=== PATIENT | male | born 1975 | race Two or more races ===

== ENCOUNTER 2025-10-14 21:30 | Inpatient (IN) | payer MEDICAID ==
[~2025-10-14] VITALS: Ht 172.7 cm; Wt 84.4 kg
[2025-10-14 21:30] VITALS: PULSE 183; RESP 37; O2SAT 80
[2025-10-14] MEDS: ROCURONIUM 10MG/ML 10ML VIAL IV ONE ×2 (21:36→22:05)
[2025-10-14] MEDS: ETOMIDATE (2MG/ML) 20ML VIAL IV ONE ×2 (21:36→22:03)
--- NOTE | 2025-10-14 21:51 | ECG ---
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
[2025-10-14 22:06] LABS: Hematocrit 45.8 % (41.0-53.0); Hemoglobin 15.3 g/dL (13.5-17.5); Mean Corpuscular Hemoglobin 30.3 pg (28.0-32.0); Mean Corpuscular Volume 91.0 fL (80.0-100.0); Nucleated Red Blood Cells % 0.1 %
[2025-10-14 22:20] LABS: INR 1.03 (0.9-1.15); Prothrombin Time 10.9 sec (9.3-11.8)
[2025-10-14] MEDS: AMIODARONE BOLUS KIT 100 ML IV ONE (22:20)
--- NOTE | 2025-10-14 22:20 | ED.PDOC ---
HPI (NEURO) HPI Comments 50-year-old male brought in by EMS. EMS called out because patient was having seizure. Upon arrival, patient was still having seizure, he was given Versed in route. Seizure did started to slow down. The patient was having snoring/apneic breathing so they put nasal trumpet in and were bagging to improve O2 saturation. Upon arrival patient is rectal temperature was 106, pulse rate in the 170s, no other history given. It was stated that patient does have a history of seizures, there was concerns of possible drug use so EMS did give to of Narcan IV with no effect [facility], other roommates have no prior knowledge of his history other than seizures. Chief Complaint: Seizure Time Seen by MD: 21:38 Reviewed Notes: Nurses Notes Information Source: Emergency Med Personnel Mode of Arrival: EMS Severity: Severe Past Medical History PAST MEDICAL HISTORY: Seizures Surgical History: Denies all surgeries Unable to Obtain due to: Intubated Physical Exam General Appearance: Severe Distress HEENT: NOT DONE Neck: Normal Inspection Respiratory: Respiratory Distress, Other (Patient is snoring, nasal trumpet in place, O2 saturation in the 70s on room air, patient is being bagged) Cardiovascular: Tachycardia Breast Exam: None Gastrointestinal: Soft Genitalia: Deferred Pelvic: Deferred Rectal: Normal rectal tone Extremities: NOT DONE Neurologic: NOT DONE Cerebellar Function: Unable to Test Reflexes: NOT DONE Skin: Diaphoresis Lymphatic: NOT DONE Was a procedure done? Was a procedure done?: Yes Sedation Sedation?: No Intubation Indication: Respiratory Insufficiency, Altered Mental Status, Airway Protection Prep: Preoxygenation Pretreated with: Sedation Medicated with: Vecuronium Intubation Approach: Orotracheal Intubation size: cm (8) Informed consent obtained: No Risks/benefits/alt described: No Notes Successful intubation with two placed 22 cm at the teeth and good color change pending chest x-ray for placement evaluation Differential Diagnosis (SZ) Seizure: Hyperventilation, Closed Head Injury, CVA/TIA, Drug Ingestion, Meningitis, Syncope CVA: Respiratory Failure General Weakness: Dehydration, Dysrhythmia X-Ray, Labs, Meds, VS Vital Signs Date Time Temp Pulse Resp B/P (MAP) Pulse Ox O2 Delivery O2 Flow Rate FiO2 10/14/25 22:52 106.2 159 16 113/39 98 90 106.2 10/14/25 22:45 100.8 134 16 155/67 (96) 100 100.8 10/14/25 22:30 100.6 144 16 152/61 (91) 100 100.6 10/14/25 22:26 148/64 10/14/25 22:25 159 16 113/39 (63) 98 90 10/14/25 22:15 101.8 151 16 148/64 (92) 100 101.8 10/14/25 22:05 83/40 10/14/25 22:00 104.1 158 16 139/89 (106) 100 104.1 10/14/25 21:45 104.1 165 16 108/44 (65) 100 104.1 10/14/25 21:38 179 10/14/25 21:30 183 37 80 Mechanical Ventilator+ 15 100 100 10/14/25 21:30 106.2 176 12 80/48 92 106.2 10/14/25 21:30 106.0 186 37 83/40 (54) 80 106.0 Lab Test 10/14/25 23:44 10/14/25 22:35 10/14/25 22:28 10/14/25 21:50 Range/Units Lactic Acid Level 1.4 0.4-2.0 mmol/L Blood Gas Specimen Type Arterial Blood Gas Sample Site Left radial Blood Gas Patient Temperature 37.0 Arterial Blood Date Drawn Arterial Blood pH 7.324 L 7.350-7.450 Arterial Blood Partial Pressure CO2 38.1 35.0-48.0 mmHg Arterial Blood Partial Pressure O2 415.6 *H 83.0-108.0 mmHg Arterial Blood HCO3 19.4 L 21.0-28.0 mmol/L Arterial Blood Oxygen Saturation 99.9 H 94.0-98.0 % Arterial Blood Base Excess -6.1 L -2.0-3.0 mmol/L Arterial Blood Oxyhemoglobin 98.9 H 94.0-98.0 % Arterial Blood Carboxyhemoglobin 0.4 L 0.5-1.5 % Arterial Blood Methemoglobin 0.6 0.0-1.5 % Jae Test Yes Blood Gas Total Hemoglobin 14.60 13.5-17.5 g/dL Blood Gas Set Respiration Rate 16.0 Blood Gas Modality Vent - ac FiO2 % 90.0 Blood Gas Tidal Volume 500.0 Blood Gas PEEP or CPAP 5.0 Blood Gas Critical Value Read Back Yes Blood Gas Notified Whom quoc Haynes Blood Gas Notified Time [id number] Blood Gas Notified By Director Of Maternity Services elvia tran Troponin I High Sensitivity 56 *H </=54 ng/L Urine Color Yellow Yellow Urine Clarity Clear Clear Urine pH 6.5 5.0-9.0 Urine Specific [place] 1.028 1.001-1.035 Urine Protein 1+ H Negative Urine Ketones 3+ H Negative Urine Blood Negative Negative /uL Urine Nitrite Negative Negative Urine Bilirubin Negative Negative Urine Urobilinogen 4 H Negative mg/dL Urine Leukocyte Esterase 1+ Negative /uL Urine RBC 5 0 - 3 /hpf Urine Microscopic WBC 29 H 0-3 /HPF Urine Squamous Epithelial Cells None seen <5 /hpf Urine Bacteria Few H None Seen /hpf Urine Hyaline Casts Few 0 - 2 /lpf Urine Mucus Few None Seen Urine Yeast (Budding) Occasional None Seen /hpf Urine Glucose Normal Normal mg/dL Urine Opiates Screen Neg NEGATIVE Urine Fentanyl Screen Neg NEGATIVE Urine Barbiturates Screen Neg NEGATIVE Urine Phencyclidine Screen Neg NEGATIVE Urine Amphetamines Screen Pos NEGATIVE Urine Benzodiazepines Screen Neg NEGATIVE Urine Cocaine Screen Neg NEGATIVE Urine Cannabinoids Screen Neg NEGATIVE Test 10/14/25 21:45 Range/Units White Blood Count 9.3 4.4-10.8 10^3/uL Red Blood Count 5.03 4.5-5.90 10^6/uL Hemoglobin 15.3 13.5-17.5 g/dL Hematocrit 45.8 41.0-53.0 % Mean Corpuscular Volume 91.0 80.0-100.0 fL Mean Corpuscular Hemoglobin 30.3 28.0-32.0 pg Mean Corpuscular Hemoglobin Concent 33.3 32.0-36.0 g/dL Red Cell Distribution Width 14.1 11.8-14.3 % Platelet Count 233 140-450 10^3/uL Mean Platelet Volume 7.6 6.9-10.8 fL Neutrophils (%) (Auto) 75.5 37.0-80.0 % Lymphocytes (%) (Auto) 16.2 10.0-50.0 % Monocytes (%) (Auto) 7.2 0.0-12.0 % Eosinophils (%) (Auto) 0.7 0.0-7.0 % Basophils (%) (Auto) 0.4 0.0-2.0 % Neutrophils # (Auto) 7.0 1.6-8.6 10 ^3/uL Lymphocytes # (Auto) 1.5 0.4-5.4 10 ^3/uL Monocytes # (Auto) 0.7 0-1.3 10 ^3/uL Eosinophils # (Auto) 0.1 0-0.8 10 ^3/uL Basophils # (Auto) 0 0-0.2 10 ^3/uL Nucleated Red Blood Cells 0.1 % Prothrombin Time 10.9 9.3-11.8 sec Prothrombin Time INR 1.03 0.9-1.15 Sodium Level 142 136-145 mmol/L Potassium Level 4.5 3.5-5.1 mmol/L Chloride Level 105 98-107 mmol/L Carbon Dioxide Level 15 L 20-31 mmol/L Anion Gap 22 H 5-15 Blood Urea Nitrogen 20 9-23 mg/dL Creatinine 1.62 H 0.700-1.30 mg/dL Glomerular Filtration Rate Calc 51 >90 mL/min BUN/Creatinine Ratio 12.3 10.0-20.0 Serum Glucose 132 H 74-106 mg/dL Lactic Acid Level 6.5 *H 0.4-2.0 mmol/L Calcium Level 10.2 8.7-10.4 mg/dL Magnesium Level 1.8 1.6-2.6 mg/dL Total Bilirubin 1.5 H 0.2-1.0 mg/dL Aspartate Amino Transferase (AST) 28 13-40 U/L Alanine Aminotransferase (ALT) 19 7-40 U/L Alkaline Phosphatase 89 46-116 U/L Troponin I High Sensitivity 30 </=54 ng/L B-Type Natriuretic Peptide 35.93 0-100 pg/mL Total Protein 8.1 5.7-8.2 g/dL Albumin 4.8 3.2-4.8 g/dL Lipase 27 12-53 U/L Thyroid Stimulating Hormone (TSH) 1.36 0.55-4.78 uIU/mL Plasma/Serum Blood Alcohol < 3.0 <10 mg/dL Current Medications Medications (Trade) Dose Ordered Sig/Radha Route Start Time Stop Time Status Last Admin Etomidate 20 mg ONCE ONCE IV 10/14/25 21:38 10/14/25 21:58 DC 10/14/25 22:03 Rocuronium [place] 100 mg ONCE ONCE IV 10/14/25 21:38 10/14/25 21:58 DC 10/14/25 22:05 Amiodarone HCl 100 ml @ 600 mls/hr ONCE ONCE IV 10/14/25 22:00 10/14/25 22:09 DC 10/14/25 22:20 Amiodarone HCl 250 ml @ 33.33 mls/ hr Q7H31M ONCE IV 10/14/25 22:15 10/15/25 05:45 10/14/25 22:43 Midazolam HCl 100 ml @ 1 mls/hr Q24H IV 10/14/25 22:15 10/14/25 22:26 Piperacillin Sod/ Tazobactam Sod 100 ml @ 100 mls/hr ONCE ONCE IV 10/14/25 22:15 10/14/25 23:14 DC 10/14/25 22:28 Sodium Bicarbonate 50 ml ONCE ONCE IV 10/14/25 22:30 10/14/25 22:31 DC 10/14/25 22:35 Sodium Chloride 2,050 ml @ 2,050 mls/hr ONCE ONCE IV 10/14/25 22:30 10/14/25 23:29 DC 10/14/25 22:35 X-Ray, Labs, Meds, VS Comment Patient be admitted for respiratory distress, amphetamine abuse, possible seizures. Patient currently on amiodarone drip with better rate control Patient's temperature has decreased to [address] head No white count, lactic acid is improved, no signs of infection Time of 1ST Reevaluation: 22:19 Reevaluation 1ST: Unchanged Patient Education/Counseling: Diagnosis, Treatment Family Education/Counseling: Diagnosis Departure 1 Departure Time of Disposition: 00:31 Impression: Primary Impression: Respiratory distress Additional Impressions: Amphetamine abuse Metabolic encephalopathy Seizure-like activity Disposition: ADMITTED INPATIENT Condition: Critical Critical Care Note Critical Care Time?: Yes (35 min-critical care time only) Critical care comment: I have personally spent 35 minutes of critical care time, exclusive of the time spent on any procedures, in evaluation and management of this critically ill patient's conditions. I provided the following cleared of care treatment: Intubation, sepsis evaluation, central line placement Stability Stability form required: No Heart Score Heart Score: Heart Score Response (Comments) Value History N/A 0 EKG N/A 0 Age N/A 0 Risk Factors N/A 0 Troponin N/A 0 Total 0 GARCÍA [facility] Oct 14, 2025 22:19
[2025-10-14] MEDS: MIDAZOLAM DRIP 100 mg/100mL NS 100 ML IV SCH (22:26)
[2025-10-14 22:28] LABS: Lactic Acid w/Reflex 6.5 mmol/L (0.4-2.0)
[2025-10-14] MEDS: PIPERACILLIN-TAZOB 3.375GM 100 ML IV ONE (22:28)
[2025-10-14] MEDS: SODIUM CHLORIDE 0.9% 2,050 ML IV ONE (22:35)
[2025-10-14] MEDS: SODIUM BICARB 8.4% 50Meq/50ml SYR Vial IV ONE (22:35)
[2025-10-14 22:38] LABS: Alanine Aminotransferase 19 U/L (7-40); Albumin 4.8 g/dL (3.2-4.8); Alkaline Phosphatase 89 U/L (46-116); Anion Gap 22 (5-15); BUN/Creatinine Ratio 12.3 (10.0-20.0); Blood Urea Nitrogen 20 mg/dL (9-23); Calcium 10.2 mg/dL (8.7-10.4); Chloride 105 mmol/L (98-107); Magnesium 1.8 mg/dL (1.6-2.6); Potassium 4.5 mmol/L (3.5-5.1); Sodium 142 mmol/L (136-145); Total Protein 8.1 g/dL (5.7-8.2)
[2025-10-14 22:41] LABS: Bilirubin, Total 1.5 mg/dL (0.2-1.0); Carbon Dioxide 15 mmol/L (20-31); Glucose 132 mg/dL (74-106)
[2025-10-14 22:44] LABS: Base Excess -6.1 mmol/L (-2.0-3.0)
[2025-10-14 22:51] LABS: Lipase 27 U/L (12-53)
[2025-10-14 22:52] VITALS: BP 113/39; PULSE 159; RESP 16; TEMP 106.2; O2SAT 98
[2025-10-14 22:55] LABS: Urine Budding Yeast OCCASIONAL /hpf (None Seen); Urine Protein, UAD 1+ (Negative)
[2025-10-14 23:07] LABS: Cannabinoid Screen, Urine Neg (NEGATIVE)
[2025-10-14 23:10] LABS: Amphetamine Screen, Urine Pos (NEGATIVE); Barbiturate Scree,Urine Neg (NEGATIVE); Benzodiazephine Screen, Urine Neg (NEGATIVE); Cocaine Screen, Urine Neg (NEGATIVE); Opiate Scree,Urine Neg (NEGATIVE); Phencyclidine Screen, Urine Neg (NEGATIVE)
[2025-10-15] VITALS (77 sets, daily range): BP systolic 112–148; BP diastolic 75–98; PULSE 73–94; RESP 16–27; TEMP 97.2–98.4; O2SAT 100
--- NOTE | 2025-10-15 | DVH ---
CHEST RADIOGRAPH Indication: AMS Technique: 1 view Comparison: None FINDINGS: Lines and Tubes: Endotracheal tube terminates 7.8 cm above the marcia. Enteric tube courses midline subdiaphragmatically below field of view. Overlying defibrillator pad. Lungs/Pleura: Bilateral perihilar interstitial opacities. No focal consolidation or pleural abnormality. Cardiomediastinum: Unremarkable. Other: No acute osseous abnormality. IMPRESSION: 1. Perihilar interstitial opacities suggesting edema or atypical infection. Baseline chest exam. 2. Support devices as above.
[2025-10-15] MEDS: VANCOMYCIN 1GM/250ML KIT 250 ML IV ONE (00:30)
--- NOTE | 2025-10-15 01:17 | DVH ---
MEDICAL RECORDS NUMBER: [id number] PROCEDURE: CT HEAD WITHOUT CONTRAST Date: 10/15/2025 12:45 AM HISTORY: AMS TECHNIQUE: Contiguous axial images were acquired from the skull base through to the vertex. CONTRAST: None COMPARISON: None RADIATION DOSE INFORMATION: Automated exposure control dose reduction techniques were used. FINDINGS: Ventricles: Atrophy of the brain is seen diffusely.The ventricles appear grossly unremarkable. Masses: No mass effect is seen. Hemorrhage: No blood products are identified. Skull: The calvarium is intact. Sinuses: Mucosal thickening and retained fluid is seen in the right maxillary sinus. Some debris is seen in the ethmoid air cells. Mastoids: No fluid is seen in the mastoid air cells. IMPRESSION: 1. No acute intracranial abnormality. 2. Sinus disease.
[2025-10-15] MEDS ORDERED: NITROGLYCERIN 0.4 MG SL TAB SL PRN (04:30)
[2025-10-15] MEDS ORDERED: MORPHINE SULFATE INJ 2 MG/ml SYRG IV PRN (04:30)
[2025-10-15] MEDS ORDERED: ALBUTEROL SULF 2.5 MG/0.5ML(0.5%) NEB SOLN NEB PRN (04:30)
[2025-10-15] MEDS ORDERED: ONDANSETRON HCL 4 MG/2 ML VIAL IV PRN (04:30)
--- NOTE | 2025-10-15 04:38 | DVHHP2 ---
History of Present Illness Reason for Visit: Altered mental status History of Present Illness 50-year-old male presents for evaluation of altered mental status. Patient is currently sedated and intubated. Per ED records EMS was called for possible seizure activity. Patient was found unresponsive. On arrival to the emergency department patient was unresponsive therefore was emergently intubated for airway protection. Past Medical History ? Seizures Past Surgical History Unknown Family History Unknown Drugs: Other (Methamphetamine) Review of Systems Review of Systems Unable to complete review of systems, patient is sedated and intubated. Allergies: Coded Allergies: UNOBTAINABLE (Unverified , 10/14/25) PT UNRESPONSIVE Medications Current Medications Medications Dose Ordered Sig/Radha Route Start Time Stop Time Status Last Admin Dose Admin Midazolam HCl 100 ml @ 1 mls/hr Q24H IV 10/14/25 22:15 10/14/25 22:26 1 MLS/HR Exam Vital Signs Vital Signs Date Time Temp Pulse Resp B/P (MAP) Pulse Ox O2 Delivery O2 Flow Rate FiO2 10/15/25 04:02 100 17 129/74 (92) 97 45 10/15/25 04:00 99.3 99.3 10/14/25 21:30 Mechanical Ventilator+ 15 Exam Gen: 50-year-old male in mild distress Skin: Warm, dry, normal color and texture, no rash. HEENT: Normocephalic atraumatic, mucous membranes moist and pink. Neck: Cervical and supraclavicular nodes normal without enlargement, trachea is midline, thyroid gland is normal without masses. Pulmonary: Intubated, diminished breath sounds bilaterally Cardiac: Regular rate and rhythm. No murmur Abdomen: Soft, nontender, nondistended, bowel sounds present all 4 quadrants, no guarding, no rigidity, no organomegaly. Extremities: No cyanosis, clubbing, no edema Neuro: Sedated Labs/Xrays ORDERING PHYSICIAN: EVGENY BLANTON MD PROCEDURE(s): CXR1 - CHEST XRAY 1 VIEW REASON: AMS ORDER NUMBER(s): [id number], ACCESSION NUMBER(s): [id number] CHEST RADIOGRAPH Indication: AMS Technique: 1 view Comparison: None FINDINGS: Lines and Tubes: Endotracheal tube terminates 7.8 cm above the marcia. Enteric tube courses midline subdiaphragmatically below field of view. Overlying defibrillator pad. Lungs/Pleura: Bilateral perihilar interstitial opacities. No focal consolidation or pleural abnormality. Cardiomediastinum: Unremarkable. Other: No acute osseous abnormality. IMPRESSION: 1. Perihilar interstitial opacities suggesting edema or atypical infection. Baseline chest exam. 2. Support devices as above. RING PHYSICIAN: EVGENY BLANTON MD PROCEDURE(s): HWOCT - HEAD WITHOUT CONTRAST REASON: AMS ORDER NUMBER(s): [id number], ACCESSION NUMBER(s): [id number] MEDICAL RECORDS NUMBER: [id number] PROCEDURE: CT HEAD WITHOUT CONTRAST Date: 10/15/2025 12:45 AM HISTORY: AMS TECHNIQUE: Contiguous axial images were acquired from the skull base through to the vertex. CONTRAST: None COMPARISON: None RADIATION DOSE INFORMATION: Automated exposure control dose reduction techniques were used. FINDINGS: Ventricles: Atrophy of the brain is seen diffusely.The ventricles appear grossly unremarkable. Masses: No mass effect is seen. Hemorrhage: No blood products are identified. Skull: The calvarium is intact. Sinuses: Mucosal thickening and retained fluid is seen in the right maxillary sinus. Some debris is seen in the ethmoid air cells. Mastoids: No fluid is seen in the mastoid air cells. IMPRESSION: 1. No acute intracranial abnormality. 2. Sinus disease. ATED BY: CAMRON CHOPRA MD Labs Test 10/15/25 00:58 10/14/25 23:44 10/14/25 22:35 10/14/25 21:50 Range/Units Troponin I High Sensitivity 74 *H </=54 ng/L Lactic Acid Level 1.4 0.4-2.0 mmol/L Blood Gas Specimen Type Arterial Blood Gas Sample Site Left radial Blood Gas Patient Temperature 37.0 Arterial Blood Date Drawn Arterial Blood pH 7.324 L 7.350-7.450 Arterial Blood Partial Pressure CO2 38.1 35.0-48.0 mmHg Arterial Blood Partial Pressure O2 415.6 *H 83.0-108.0 mmHg Arterial Blood HCO3 19.4 L 21.0-28.0 mmol/L Arterial Blood Oxygen Saturation 99.9 H 94.0-98.0 % Arterial Blood Base Excess -6.1 L -2.0-3.0 mmol/L Arterial Blood Oxyhemoglobin 98.9 H 94.0-98.0 % Arterial Blood Carboxyhemoglobin 0.4 L 0.5-1.5 % Arterial Blood Methemoglobin 0.6 0.0-1.5 % Jae Test Yes Blood Gas Total Hemoglobin 14.60 13.5-17.5 g/dL Blood Gas Set Respiration Rate 16.0 Blood Gas Modality Vent - ac FiO2 % 90.0 Blood Gas Tidal Volume 500.0 Blood Gas PEEP or CPAP 5.0 Blood Gas Critical Value Read Back Yes Blood Gas Notified Whom evgeny Haynes Blood Gas Notified Time [id number] Blood Gas Notified By Fur Stylist elvia tran Urine Color Yellow Yellow Urine Clarity Clear Clear Urine pH 6.5 5.0-9.0 Urine Specific [place] 1.028 1.001-1.035 Urine Protein 1+ H Negative Urine Ketones 3+ H Negative Urine Blood Negative Negative /uL Urine Nitrite Negative Negative Urine Bilirubin Negative Negative Urine Urobilinogen 4 H Negative mg/dL Urine Leukocyte Esterase 1+ Negative /uL Urine RBC 5 0 - 3 /hpf Urine Microscopic WBC 29 H 0-3 /HPF Urine Squamous Epithelial Cells None seen <5 /hpf Urine Bacteria Few H None Seen /hpf Urine Hyaline Casts Few 0 - 2 /lpf Urine Mucus Few None Seen Urine Yeast (Budding) Occasional None Seen /hpf Urine Glucose Normal Normal mg/dL Urine Opiates Screen Neg NEGATIVE Urine Fentanyl Screen Neg NEGATIVE Urine Barbiturates Screen Neg NEGATIVE Urine Phencyclidine Screen Neg NEGATIVE Urine Amphetamines Screen Pos NEGATIVE Urine Benzodiazepines Screen Neg NEGATIVE Urine Cocaine Screen Neg NEGATIVE Urine Cannabinoids Screen Neg NEGATIVE Test 10/14/25 21:45 Range/Units White Blood Count 9.3 4.4-10.8 10^3/uL Red Blood Count 5.03 4.5-5.90 10^6/uL Hemoglobin 15.3 13.5-17.5 g/dL Hematocrit 45.8 41.0-53.0 % Mean Corpuscular Volume 91.0 80.0-100.0 fL Mean Corpuscular Hemoglobin 30.3 28.0-32.0 pg Mean Corpuscular Hemoglobin Concent 33.3 32.0-36.0 g/dL Red Cell Distribution Width 14.1 11.8-14.3 % Platelet Count 233 140-450 10^3/uL Mean Platelet Volume 7.6 6.9-10.8 fL Neutrophils (%) (Auto) 75.5 37.0-80.0 % Lymphocytes (%) (Auto) 16.2 10.0-50.0 % Monocytes (%) (Auto) 7.2 0.0-12.0 % Eosinophils (%) (Auto) 0.7 0.0-7.0 % Basophils (%) (Auto) 0.4 0.0-2.0 % Neutrophils # (Auto) 7.0 1.6-8.6 10 ^3/uL Lymphocytes # (Auto) 1.5 0.4-5.4 10 ^3/uL Monocytes # (Auto) 0.7 0-1.3 10 ^3/uL Eosinophils # (Auto) 0.1 0-0.8 10 ^3/uL Basophils # (Auto) 0 0-0.2 10 ^3/uL Nucleated Red Blood Cells 0.1 % Prothrombin Time 10.9 9.3-11.8 sec Prothrombin Time INR 1.03 0.9-1.15 Sodium Level 142 136-145 mmol/L Potassium Level 4.5 3.5-5.1 mmol/L Chloride Level 105 98-107 mmol/L Carbon Dioxide Level 15 L 20-31 mmol/L Anion Gap 22 H 5-15 Blood Urea Nitrogen 20 9-23 mg/dL Creatinine 1.62 H 0.700-1.30 mg/dL Glomerular Filtration Rate Calc 51 >90 mL/min BUN/Creatinine Ratio 12.3 10.0-20.0 Serum Glucose 132 H 74-106 mg/dL Calcium Level 10.2 8.7-10.4 mg/dL Magnesium Level 1.8 1.6-2.6 mg/dL Total Bilirubin 1.5 H 0.2-1.0 mg/dL Aspartate Amino Transferase (AST) 28 13-40 U/L Alanine Aminotransferase (ALT) 19 7-40 U/L Alkaline Phosphatase 89 46-116 U/L B-Type Natriuretic Peptide 35.93 0-100 pg/mL Total Protein 8.1 5.7-8.2 g/dL Albumin 4.8 3.2-4.8 g/dL Lipase 27 12-53 U/L Thyroid Stimulating Hormone (TSH) 1.36 0.55-4.78 uIU/mL Plasma/Serum Blood Alcohol < 3.0 <10 mg/dL SEPSIS Sepsis Screen Date sepsis recognized/suspect: Oct 14, 2025 Time Sepsis recognized/suspect: 2139 Recent Procedure: No On Antibiotic Therapy: No Respiratory Rate >20: Yes Heart Rate >90: Yes Temp<36 C (96.8 F) or >38.3 C: Yes SBP <90 or MAP <65 mmHG: Yes New Acute Mental Status Change: Yes Is the patient on CPAP, BIPAP,: Yes Physician Orders Covid19 Antigen Laine (10/14/25 ) Rapid Influenza A&B (10/14/25 21:40) Head Without Contrast (10/14/25 21:40) Chest Xray 1 View (10/14/25 21:40) Blood Culture (10/14/25 21:40) Saline Lock (10/14/25 21:40) Borderer (10/14/25 ) Electrocardigram (10/14/25 22:40) Electrocardigram (10/15/25 00:40) [place]ello Catheters (10/14/25 ) Place Og Tube (10/14/25 21:43) Ventilator Setup (10/14/25 21:53) Abg W/ Co-Ox (10/14/25 23:00) Respiratory Culture W/ Gs (10/14/25 21:53) Amiodarone 450mg/250ml Ae (Cordarone) (10/14/25 22:15) Midazolam Drip 100 Mg/100ml Ns (Versed D (10/14/25 22:15) Rass Sedation Scale Q1HR (10/14/25 22:01) Communication Order (10/15/25 01:28) Vital Signs Date Time Temp Pulse Resp B/P (MAP) Pulse Ox O2 Delivery O2 Flow Rate FiO2 10/15/25 04:02 100 17 129/74 (92) 97 45 10/15/25 04:00 99.3 100 16 132/74 (93) 97 99.3 10/15/25 03:45 99.5 100 18 129/74 (92) 97 99.5 10/15/25 03:30 99.7 101 17 127/71 (89) 97 99.7 10/15/25 03:15 99.7 102 17 125/72 (89) 97 99.7 10/15/25 03:00 99.7 103 16 125/71 (89) 97 99.7 10/15/25 02:45 100.2 103 17 129/71 (90) 98 100.2 10/15/25 02:30 100.2 104 18 127/73 (91) 98 100.2 10/15/25 02:15 100.2 105 16 128/74 (92) 97 100.2 10/15/25 02:03 105 17 120/67 (84) 98 50 10/15/25 02:00 100.2 104 17 126/73 (90) 97 100.2 10/15/25 01:45 100.2 105 17 120/69 (86) 98 100.2 10/15/25 01:30 100.2 105 17 120/67 (84) 97 100.2 10/15/25 01:20 136/66 10/15/25 01:15 100.2 105 19 136/66 (89) 97 100.2 10/15/25 00:50 115/85 10/15/25 00:45 100.6 104 19 115/85 (95) 97 100.6 10/15/25 00:30 100.6 109 19 145/83 (103) 97 100.6 10/15/25 00:22 124 23 130/57 (81) 99 50 10/15/25 00:20 125/107 10/15/25 00:15 100.6 106 19 125/107 (113) 98 100.6 10/15/25 00:00 100.6 113 19 161/68 (99) 98 100.6 10/14/25 23:45 100.6 116 22 121/65 (83) 98 100.6 10/14/25 23:30 100.8 120 16 130/57 (81) 99 100.8 10/14/25 23:15 100.8 128 16 144/67 (92) 96 100.8 10/14/25 23:00 100.8 129 16 148/71 (96) 100 100.8 10/14/25 22:52 106.2 159 16 113/39 98 90 106.2 10/14/25 22:45 100.8 134 16 155/67 (96) 100 100.8 10/14/25 22:30 100.6 144 16 152/61 (91) 100 100.6 10/14/25 22:26 148/64 10/14/25 22:25 159 16 113/39 (63) 98 90 10/14/25 22:15 101.8 151 16 148/64 (92) 100 101.8 10/14/25 22:05 83/40 10/14/25 22:00 104.1 158 16 139/89 (106) 100 104.1 10/14/25 21:45 104.1 165 16 108/44 (65) 100 104.1 10/14/25 21:38 179 10/14/25 21:30 183 37 80 Mechanical Ventilator+ 15 100 100 10/14/25 21:30 106.2 176 12 80/48 92 106.2 10/14/25 21:30 106.0 186 37 83/40 (54) 80 106.0 Laboratory Tests Test 10/14/25 21:45 10/14/25 23:44 Lactic Acid Level 6.5 mmol/L (0.4-2.0) *H 1.4 mmol/L (0.4-2.0) White Blood Count 9.3 10^3/uL (4.4-10.8) Medications Medications Dose Ordered Sig/Radha Route Start Time Stop Time Status Last Admin Dose Admin Amiodarone HCl 100 ml @ 600 mls/hr ONCE ONCE IV 10/14/25 22:00 10/14/25 22:09 DC 10/14/25 22:20 600 MLS/HR Amiodarone HCl 250 ml @ 33.33 mls/ hr Q7H31M ONCE IV 10/14/25 22:15 10/15/25 05:45 10/14/25 22:43 33.33 MLS/HR Etomidate 20 mg ONCE ONCE IV 10/14/25 21:38 10/14/25 21:58 DC 10/14/25 22:03 20 MG Midazolam HCl 100 ml @ 1 mls/hr Q24H IV 10/14/25 22:15 10/14/25 22:26 1 MLS/HR Piperacillin Sod/ Tazobactam Sod 100 ml @ 100 mls/hr ONCE ONCE IV 10/14/25 22:15 10/14/25 23:14 DC 10/14/25 22:28 100 MLS/HR Rocuronium [place] 100 mg ONCE ONCE IV 10/14/25 21:38 10/14/25 21:58 DC 10/14/25 22:05 100 MG Sodium Bicarbonate 50 ml ONCE ONCE IV 10/14/25 22:30 10/14/25 22:31 DC 10/14/25 22:35 50 ML Sodium Chloride 2,050 ml @ 2,050 mls/hr ONCE ONCE IV 10/14/25 22:30 10/14/25 23:29 DC 10/14/25 22:35 2,050 MLS/HR Vancomycin HCl 250 ml @ 250 mls/hr ONCE ONCE IV 10/14/25 22:15 10/14/25 23:14 DC 10/15/25 00:30 250 MLS/HR Assessment/Plan Assessment/Plan Assessment Acute respiratory failure Amphetamine abuse SVT Elevated troponin, possible demand ischemia ? Sepsis Plan Admit the patient to ICU to the hospitalist Maintenance IV fluids Cefepime Continue amiodarone Total critical care time excluding procedures performed this 50 minutes. Plan discussed with: Other Date of Service: Oct 15, 2025 Billing Provider: MARCO ANTONIO GORMAN Common Visit Codes: [id number] CARE 30-74 MIN MARCO ANTONIO GORMAN Oct 15, 2025 04:38
[2025-10-15] MEDS: SODIUM CHLORIDE 0.9% 1,000 ML IV ONE (04:39)
[2025-10-15 05:08] LABS: Hematocrit 42.8 % (41.0-53.0); Hemoglobin 14.5 g/dL (13.5-17.5); Mean Corpuscular Hemoglobin 30.7 pg (28.0-32.0); Mean Corpuscular Volume 90.5 fL (80.0-100.0); Nucleated Red Blood Cells % 0.0 %
[2025-10-15 05:16] LABS: Chloride 106 mmol/L (98-107); Potassium 3.8 mmol/L (3.5-5.1); Sodium 144 mmol/L (136-145)
[2025-10-15 05:17] LABS: Anion Gap 12 (5-15); Carbon Dioxide 26 mmol/L (20-31)
[2025-10-15 05:18] LABS: Calcium 9.0 mg/dL (8.7-10.4)
[2025-10-15 05:22] LABS: BUN/Creatinine Ratio 13.0 (10.0-20.0); Blood Urea Nitrogen 20 mg/dL (9-23)
[2025-10-15 05:30] LABS: Glucose 129 mg/dL (74-106)
[2025-10-15 09:21] LABS: Base Excess -3.5 mmol/L (-2.0-3.0)
[2025-10-15] MEDS: CEFEPIME 1GM/50ML 50 ML IV SCH (09:51)
[2025-10-15] MEDS: PANTOPRAZOLE 40 MG/10 ML VIAL INJ IV SCH (09:51)
--- NOTE | 2025-10-15 12:56 | MEDREC ---
[facility] Intervention Section I [facility] Intervention: Review courses of therapy (PLEASE CONSIDER ADDING DOXYCYLINE FOR ATYPICAL COVERAGE ) LISA LI PHARMACIST Oct 15, 2025 12:56
[2025-10-15 13:54] LABS: COVID19 ANTIGEN SOFIA FIA NEGATIVE (NEGATIVE)
[2025-10-15] MEDS: SODIUM CHLORIDE 0.9% 1,000 ML IV SCH (15:15)
--- NOTE | 2025-10-15 15:50 | DVH ---
CHEST RADIOGRAPH Indication: pneumonia Technique: Single frontal view of the chest was obtained COMPARISON: XY CHEST XRAY 1 VIEW on DOS: 10/14/25 FINDINGS: Lines and Tubes: Endotracheal tube and enteric catheter in satisfactory position. Lungs: Mild congestion. Pleura: No effusion. No pneumothorax. Cardiomediastinal contours: Unremarkable Bones: Unremarkable IMPRESSION: Lines and tubes in satisfactory position. No significant interval change.
[2025-10-15] MEDS: fentaNYL Drip 2500mCg/250mlNS 250 ML IV SCH (18:04)
--- NOTE | 2025-10-15 19:06 | DVHPNRES ---
Progress Note Date Seen: Oct 15, 2025 Resident Creating Document: ELLIS HER RESIDENT Medical Necessity Reason Pt with a Central, PICC or Fol: Yes Subjective Review of Systems 50-year-old male presents for evaluation of altered mental status. Patient is currently sedated and intubated. Per ED records EMS was called for possible seizure activity. Patient was found unresponsive. On arrival to the emergency department patient was unresponsive therefore was emergently intubated for airway protection. Patient was residing at [facility] [place] [facility] and he was found un[place] in the [place] [facility], this is unclear if patient had seizure or some other drug overdose, at present patient's temperature was 106 F. patient also treating at [facility] and [facility], patient is in Probation . No family contact . ROS Unable to obtain as patient is intubated and sedated Objective vital signs Vital Sign Date Time Temp Pulse Resp B/P (MAP) Pulse Ox O2 Delivery O2 Flow Rate FiO2 10/15/25 18:45 76 16 138/90 (106) 100 10/15/25 18:04 30 10/15/25 18:00 Mechanical Ventilator+ 10/15/25 16:45 97.8 97.8 10/14/25 21:30 15 Total Intake and Output 10/14/25 10/14/25 10/15/25 14:59 22:59 06:59 Intake Total 100 ml 108 ml Output Total 400 ml Balance 100 ml -292 ml medications Current Medications Medications Dose Ordered Sig/Radha Route Start Time Stop Time Status Last Admin Dose Admin Midazolam HCl 100 ml @ 1 mls/hr Q24H IV 10/14/25 22:15 10/15/25 18:07 10 MLS/HR Albuterol 2.5 mg Q6HPRN PRN NEB 10/15/25 04:30 Pantoprazole Sodium 40 mg DAILY IV 10/15/25 10:00 10/15/25 09:51 40 MG Ondansetron HCl 4 mg Q4HP PRN IV 10/15/25 04:30 Acetaminophen 650 mg Q6HP PRN PO 10/15/25 04:30 Nitroglycerin 0.4 mg Q5MINP PRN SL 10/15/25 04:30 Morphine Sulfate 2 mg Q30M PRN IV 10/15/25 04:30 Sodium Chloride 1,000 ml @ 125 mls/hr Q8H IV 10/15/25 15:15 10/15/25 15:15 125 MLS/HR Enoxaparin Sodium 40 mg DAILY SC 10/16/25 10:00 Cefepime HCl 50 ml @ 12.5 mls/hr Q8HR IV 10/15/25 22:00 Fentanyl Citrate 250 ml @ 2.5 mls/hr Q24H IV 10/15/25 15:15 10/15/25 18:04 2.5 MLS/HR Enteral Nutritional Formula 1,000 ml 30ML/HR GT 10/15/25 16:15 Examination Patient lying in bed, under sedoanalgesia due to mechanical ventilation General: RASS -3, afebrile, mucosae are moist Cardiovascular: Normal S1 and S2. No murmurs, gallops or rubs Respiratory: Mechanically assisted ventilation, equal bilateral airway entree. Clear lung sounds on auscultation Abdomen: Soft, nontender, no organomegaly, normal bowel sounds MSK/skin: Mobilization of limbs cannot be evaluated. Skin is dry and warm Neurological: Orientation cannot be assessed. No apparent motor no sensitive deficits. Pupils are isocoric and reactive laboratory and microbiology Laboratory Tests 10/15/25 04:56 Test 10/15/25 04:56 Range/Units Serum Glucose 129 H 74-106 mg/dL Microbiology Date/Time Source Procedure Growth Status 10/14/25 21:54 Sputum Gram Stain - Final Resulted 10/14/25 21:54 Sputum Respiratory Culture Pending Resulted Problem List/Assessment/Plan Problem List/Assessment/Plan Neurology : # metabolic encephalopathy due to possible drug overdose, seizure activity - head CT shows no acute intracranial abnormality - patient was un[place] the [place] [facility] - patient was on Suboxone for opiate abuse - U tox shows amphetamine positive - continue mechanical ventilation for airway protection - Cardiovascular : # NSTEMI due to likely demand ischemia - trops were 56/74 - we will follow up to rule out ACS Respiratory : # possible Gram-positive/Gram-negative bacterial pneumonia # possible aspiration pneumonia - CXR shows: Perihilar interstitial opacities suggesting edema or atypical infection. - continue cefepime 2 g extended infusion q.8 hours Gastroenterology # transaminitis - AST was 202, total bilirubin 1.2 - ordered hep panel Genitourinary : # possible UTI - UA shows leukocyte esterase positive, urine WBC 29 - continue cefepime - urine culture ordered Infectious Disease : # possible sepsis due to likely pneumonia - blood culture and urine culture - CXR shows: Perihilar interstitial opacities suggesting edema or atypical infection. - continue cefepime 2 g extended infusion q.8 hours Nutrition : - continue Jevity 30 mL/hour Rhabdomyolysis: ivf Prophylaxis for PUD and DVT: Protonix IV, Lovenox IV Drips - Fentanyl - Versed Invasive access : Costello catheter : 10/14/25 Endotracheal tube : 10/14/25 Peripheral lines: 10/14/25 PICC lines to be inserted. Critical Care time spent 81 minutes including patient care, chart review , excluding procedure. Case discussed with Dr. Cote. Plan discussed with: Other (RN) My Orders My Orders Orders - ELLIS EHR RESIDENT Procedure Category Date Status Time * Horse Stud Manager CONS 10/15/25 Transmitted Consult Initiate Vte EMILE 10/15/25 In Process Prophylaxis 12:16 Creatine Kinase LAB 10/15/25 Verified 18:57 Abg W/ Co-Ox RT 10/16/25 Verified 04:00 Chest Xray 1 View XY 10/16/25 Verified 04:00 Urine Bacterial SABINO 10/15/25 Uncollected Culture 18:57 Thyroid Stimulating LAB 10/15/25 Verified Hormone 18:57 Hepatic Panel LAB 10/15/25 Verified 18:57 Dietary Evaluation Review Comments: When Intubated: 1. Consider TF Vital A.F. @50ml/hr (90g protein, 1440 kcal and 973ml free water. this will meet pt's protein needs @95%, energy needs @91% When extubated 2. 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 Drug Rehab counseling Expected Outcomes/Goals: Free from drug addictions Date of Service: Oct 15, 2025 Billing Provider: MARCO ANTONIO COTE MD Common Visit Codes: [id number] CARE 30-74 MIN, [id number] CARE-EACH +30MIN ELLIS HER RESIDENT Oct 15, 2025 19:06 MARCO ANTONIO COTE MD Oct 16, 2025 13:48
[2025-10-15 20:06] LABS: Alanine Aminotransferase 40.0 U/L (7-40); Albumin 4.4 g/dL (3.2-4.8); Alkaline Phosphatase 74.0 U/L (46-116); Total Protein 7.4 g/dL (5.7-8.2)
[2025-10-15 20:08] LABS: Bilirubin, Direct 0.4 mg/dL (<0.3); Bilirubin, Total 1.2 mg/dL (0.2-1.0)
[2025-10-15] MEDS: Jevity 1.2 Cal/Fiber 1 Liter GT SCH (20:26)
[2025-10-15] MEDS: CEFEPIME 2GM/50ML NS 50 ML IV SCH (21:42)
[2025-10-16] VITALS (97 sets, daily range): BP systolic 112–152; BP diastolic 76–95; PULSE 64–92; RESP 13–29; TEMP 96.9–97.9; O2SAT 99–100
[2025-10-16 04:40] LABS: Hematocrit 40.7 % (41.0-53.0); Hemoglobin 13.7 g/dL (13.5-17.5); Mean Corpuscular Hemoglobin 30.7 pg (28.0-32.0); Mean Corpuscular Volume 91.0 fL (80.0-100.0); Nucleated Red Blood Cells % 0.1 %
--- NOTE | 2025-10-16 04:45 | DVH ---
MEDICAL RECORDS NUMBER: [id number] PROCEDURE: XY CHEST XRAY 1 VIEW DATE: 10/16/2025 02:38 AM HISTORY: intubated Views:1 COMPARISON: XY CHEST XRAY 1 VIEW on DOS: 10/15/25, XY CHEST XRAY 1 VIEW on DOS: 10/14/25 FINDINGS/IMPRESSION: Lungs: The lungs are clear. Mediastinum: Mediastinal structures appear unremarkable.A endotracheal tube is seen with the tip projecting approximately 2 cm above the marcia.NG tube is seen with the tip projecting over the expected position of the stomach. Skeletal: The skeletal structures appear unremarkable.
[2025-10-16 04:57] LABS: Albumin 3.7 g/dL (3.2-4.8); Alkaline Phosphatase 66 U/L (46-116); Anion Gap 14 (5-15); BUN/Creatinine Ratio 23.0 (10.0-20.0); Blood Urea Nitrogen 23 mg/dL (9-23); Carbon Dioxide 22 mmol/L (20-31); Glucose 75 mg/dL (74-106); Potassium 3.5 mmol/L (3.5-5.1); Total Protein 6.3 g/dL (5.7-8.2)
[2025-10-16 04:58] LABS: Bilirubin, Total 1.2 mg/dL (0.2-1.0)
[2025-10-16 04:59] LABS: Alanine Aminotransferase 339 U/L (7-40); Calcium 8.6 mg/dL (8.7-10.4); Chloride 109 mmol/L (98-107); Sodium 145 mmol/L (136-145)
[2025-10-16 07:39] LABS: Base Excess -6.7 mmol/L (-2.0-3.0)
[2025-10-16] MEDS: ENOXAPARIN SOD 40 MG/0.4 ML SYRINGE SC SCH (12:02)
[2025-10-16] MEDS: LIDOCAINE 1% (LOCAL ANESTH.) PF 5ml SDV ID ONE (14:15)
--- NOTE | 2025-10-16 16:55 | DVHPNRES ---
Progress Note Date Seen: Oct 16, 2025 Resident Creating Document: ELLIS HER RESIDENT Medical Necessity Reason Pt with a Central, PICC or Fol: Yes Subjective Review of Systems 50-year-old male presents for evaluation of altered mental status. Patient is currently sedated and intubated. Per ED records EMS was called for possible seizure activity. Patient was found unresponsive. On arrival to the emergency department patient was unresponsive therefore was emergently intubated for airway protection. Patient was residing at emergency care home and he was found unresponsive in the care home, this is unclear if patient had seizure or some other drug overdose, at present patient's temperature was 106 F. patient also treating at [facility] and [facility], patient is in Probation . No family contact . 10/16/25: In and examined at bedside, patient is intubated and sedated, [place] [address], on IV bolus was given and patient is on IV normal saline 125 per hour, we will check CK and we will do CPAP trial tomorrow ROS Unable to obtain as patient is intubated and sedated Objective vital signs Vital Sign Date Time Temp Pulse Resp B/P (MAP) Pulse Ox O2 Delivery O2 Flow Rate FiO2 10/16/25 16:08 66 16 133/84 (100) 100 30 10/16/25 10:15 Mechanical Ventilator+ 10/16/25 08:00 97.8 97.8 10/14/25 21:30 15 Total Intake and Output 10/15/25 10/15/25 10/16/25 15:00 23:00 07:00 Intake Total 75 ml 1140.0 ml 964.5 ml Output Total 550 ml 260 ml Balance 75 ml 590.0 ml 704.5 ml medications Current Medications Medications Dose Ordered Sig/Radha Route Start Time Stop Time Status Last Admin Dose Admin Midazolam HCl 100 ml @ 1 mls/hr Q24H IV 10/14/25 22:15 10/16/25 14:22 10 MLS/HR Albuterol 2.5 mg Q6HPRN PRN NEB 10/15/25 04:30 Pantoprazole Sodium 40 mg DAILY IV 10/15/25 10:00 10/16/25 12:02 40 MG Ondansetron HCl 4 mg Q4HP PRN IV 10/15/25 04:30 Acetaminophen 650 mg Q6HP PRN PO 10/15/25 04:30 Nitroglycerin 0.4 mg Q5MINP PRN SL 10/15/25 04:30 Morphine Sulfate 2 mg Q30M PRN IV 10/15/25 04:30 Sodium Chloride 1,000 ml @ 125 mls/hr Q8H IV 10/15/25 15:15 10/16/25 05:59 125 MLS/HR Enoxaparin Sodium 40 mg DAILY SC 10/16/25 10:00 10/16/25 12:02 40 MG Cefepime HCl 50 ml @ 12.5 mls/hr Q8HR IV 10/15/25 22:00 10/16/25 06:18 12.5 MLS/HR Fentanyl Citrate 250 ml @ 2.5 mls/hr Q24H IV 10/15/25 15:15 10/15/25 18:04 2.5 MLS/HR Enteral Nutritional Formula 1,000 ml 30ML/HR GT 10/15/25 16:15 10/15/25 20:26 1,000 ML Sodium Chloride 10 ml QSHIFT@10,22 IV 10/16/25 22:00 Examination Patient lying in bed, under sedoanalgesia due to mechanical ventilation General: RASS -3, afebrile, mucosae are moist Cardiovascular: Normal S1 and S2. No murmurs, gallops or rubs Respiratory: Mechanically assisted ventilation, equal bilateral airway entree. Clear lung sounds on auscultation Abdomen: Soft, nontender, no organomegaly, normal bowel sounds MSK/skin: Mobilization of limbs cannot be evaluated. Skin is dry and warm Neurological: Orientation cannot be assessed. No apparent motor no sensitive deficits. Pupils are isocoric and reactive laboratory and microbiology Laboratory Tests 10/16/25 03:40 Test 10/16/25 03:40 Range/Units Serum Glucose 75 74-106 mg/dL Microbiology Date/Time Source Procedure Growth Status 10/15/25 12:35 Nose MRSA Screen - Final Complete 10/14/25 22:28 Blood Blood Culture - Preliminary NO GROWTH AFTER 24 HOURS OF INCUBATION. Resulted 10/14/25 21:54 Sputum Gram Stain - Final Resulted 10/14/25 21:54 Sputum Respiratory Culture - Preliminary Resulted Problem List/Assessment/Plan Problem List/Assessment/Plan Neurology : # metabolic encephalopathy due to possible drug overdose, seizure activity - head CT shows no acute intracranial abnormality - patient was unresponsive at the care home - patient was on Suboxone for opiate abuse - U tox shows amphetamine positive - continue mechanical ventilation for airway protection - Cardiovascular : # NSTEMI due to likely demand ischemia - trops were 56/74 - we will follow up to rule out ACS Respiratory : # possible Gram-positive/Gram-negative bacterial pneumonia # possible aspiration pneumonia - CXR shows: Perihilar interstitial opacities suggesting edema or atypical infection. - continue cefepime 2 g extended infusion q.8 hours Gastroenterology # transaminitis - AST was 202> 1027, total bilirubin 1.2 - hep panel pending Genitourinary : # possible UTI - UA shows leukocyte esterase positive, urine WBC 29 - continue cefepime - urine culture ordered # Rhabdomyolysis - CK was 8391 > 06713 - patient is on NS 125ml per hour -1 L normal saline bolus was given - CK level tomorrow morning Infectious Disease : # possible sepsis due to likely pneumonia - blood culture and urine culture - CXR shows: Perihilar interstitial opacities suggesting edema or atypical infection. - continue cefepime 2 g extended infusion q.8 hours Nutrition : - continue Jevity 30 mL/hour Prophylaxis for PUD and DVT: Protonix IV, Lovenox IV Drips - Fentanyl - Versed Invasive access : Costello catheter : 10/14/25 Endotracheal tube : 10/14/25 Peripheral lines: 10/14/25 PICC lines to be inserted. Possible CPAP trial tomorrow morning Critical Care time spent 64 minutes including patient care, chart review , excluding procedure. Case discussed with Dr. Cote. Plan discussed with: Other (RN) My Orders My Orders Orders - ELLIS HER RESIDENT Procedure Category Date Status Time Abg W/ Co-Ox RT 10/16/25 Logged 04:00 Chest Xray 1 View XY 10/16/25 Resulted 04:00 Urine Bacterial SABINO 10/15/25 Uncollected Culture 18:57 Acute Hepatitis Panel LAB 10/16/25 In Process 08:19 Dietary Evaluation Review Comments: When Intubated: 1. Consider TF Vital A.F. @50ml/hr (90g protein, 1440 kcal and 973ml free water. this will meet pt's protein needs @95%, energy needs @91% When extubated 2. Advance to Regular Diet texture as tolerated when medically feasible and passing HEAD BUTLER, 3. Drug Rehab counseling Expected Outcomes/Goals: Free from drug addictions Date of Service: Oct 16, 2025 Billing Provider: MARCO ANTONIO COTE MD Common Visit Codes: [id number] CARE 30-74 MIN ELLIS HER RESIDENT Oct 16, 2025 16:55 MARCO ANTONIO COTE MD Oct 17, 2025 13:50
[2025-10-16] MEDS: SODIUM CHLOR 0.9% PF (SALINE LOCK) 10ML VIAL/SYR IV SCH (21:54)
[2025-10-16] MEDS: DEXMEDETOMIDINE HCL IN D5W 100 ML IV SCH (23:45)
[2025-10-17] VITALS (72 sets, daily range): BP systolic 118–170; BP diastolic 76–104; PULSE 63–87; RESP 15–23; TEMP 97.9–99.1; O2SAT 97–100
[2025-10-17 04:16] LABS: Albumin 3.4 g/dL (3.2-4.8); Alkaline Phosphatase 60 U/L (46-116); Anion Gap 12 (5-15); BUN/Creatinine Ratio 18.3 (10.0-20.0); Blood Urea Nitrogen 11 mg/dL (9-23); Carbon Dioxide 22 mmol/L (20-31); Potassium 3.5 mmol/L (3.5-5.1); Total Protein 5.8 g/dL (5.7-8.2)
[2025-10-17 04:17] LABS: Bilirubin, Total 0.9 mg/dL (0.2-1.0)
[2025-10-17 04:19] LABS: Alanine Aminotransferase 282 U/L (7-40); Calcium 8.2 mg/dL (8.7-10.4); Chloride 111 mmol/L (98-107); Glucose 107 mg/dL (74-106); Hematocrit 38.0 % (41.0-53.0); Hemoglobin 12.9 g/dL (13.5-17.5); Mean Corpuscular Hemoglobin 30.5 pg (28.0-32.0); Mean Corpuscular Volume 90.3 fL (80.0-100.0); Nucleated Red Blood Cells % 0.1 %; Sodium 145 mmol/L (136-145)
[2025-10-17 04:51] LABS: Creatine Kinase IFCC 12051 U/L (46-171)
--- NOTE | 2025-10-17 05:05 | DVH ---
Exam: US US GUIDED VASCULAR ACCESS Clinical History: PICC Comparison: None Findings: Targeted sonographic evaluation of the arm vein was obtained utilizing grayscale and color Doppler imaging. IMPRESSION: Sonographic assistance for peripherally inserted central line placement. Please refer to procedural report for detailed findings.
--- NOTE | 2025-10-17 05:19 | DVH ---
CHEST RADIOGRAPH Indication: intubated Technique: Single frontal view of the chest was obtained Comparison: XY CHEST XRAY 1 VIEW on DOS: 10/16/25 FINDINGS: Lines and Tubes: The endotracheal tube terminates 5.6 cm above the marcia. There is a right upper extremity PICC with its tip terminating in the superior vena cava. The enteric tube terminates in the stomach. Lungs: No focal consolidation. Pleura: No effusion. No pneumothorax. Cardiomediastinal contours: Unremarkable Bones: No acute osseous abnormality. IMPRESSION: 1. No acute cardiopulmonary disease.
[2025-10-17 06:13] LABS: Base Excess -4.7 mmol/L (-2.0-3.0)
[2025-10-17 12:26] LABS: Hepatitis B Surface Antigen Negative (Negative)
[2025-10-17 12:31] LABS: Hepatitis C Antibody Positive (Negative)
[2025-10-17] MEDS ORDERED: MAGNESIUM SULFATE 1GM/100ML 100 ML IV SCH (15:00)
[2025-10-17] MEDS: POTASSIUM CHL 20MEQ/100ML 100 ML IV ONE (15:42)
--- NOTE | 2025-10-17 15:56 | DVHPNRES ---
Progress Note Date Seen: Oct 17, 2025 Resident Creating Document: ELLIS HER RESIDENT Medical Necessity Reason Pt with a Central, PICC or Fol: Yes Subjective Review of Systems 50-year-old male presents for evaluation of altered mental status. Patient is currently sedated and intubated. Per ED records EMS was called for possible seizure activity. Patient was found unresponsive. On arrival to the emergency department patient was unresponsive therefore was emergently intubated for airway protection. [facility] and [facility] in the [facility], this is unclear if patient had seizure or some other drug overdose, at present patient's temperature was 106 F. patient also treating at [facility] and [facility], patient is in Probation . No family contact . 10/16/25: In and examined at bedside, patient is intubated and sedated, [place] [address], on IV bolus was given and patient is on IV normal saline 125 per hour, we will check CK and we will do CPAP trial tomorrow. 10/17/25: Patient seen and examined at bedside. The morning patient was on sedation and patient woke up got agitated, patient was placed back on sedation fentanyl 25 and Precedex 0.4. We will try CPAP. ROS Unable to obtain as patient is intubated and sedated Objective vital signs Vital Sign Date Time Temp Pulse Resp B/P (MAP) Pulse Ox O2 Delivery O2 Flow Rate FiO2 10/17/25 14:25 70 16 154/99 (117) 100 30 10/17/25 10:00 Mechanical Ventilator+ 10/17/25 08:00 98.9 98.9 Total Intake and Output 10/16/25 10/16/25 10/17/25 15:00 23:00 07:00 Intake Total 1180.0 ml 1460.0 ml 1278.5 ml Output Total 525 ml 475 ml Balance 1180.0 ml 935.0 ml 803.5 ml medications Current Medications Medications Dose Ordered Sig/Radha Route Start Time Stop Time Status Last Admin Dose Admin Midazolam HCl 100 ml @ 1 mls/hr Q24H IV 10/14/25 22:15 10/17/25 04:05 5 MLS/HR Albuterol 2.5 mg Q6HPRN PRN NEB 10/15/25 04:30 Pantoprazole Sodium 40 mg DAILY IV 10/15/25 10:00 10/17/25 09:16 40 MG Ondansetron HCl 4 mg Q4HP PRN IV 10/15/25 04:30 Acetaminophen 650 mg Q6HP PRN PO 10/15/25 04:30 Nitroglycerin 0.4 mg Q5MINP PRN SL 10/15/25 04:30 Morphine Sulfate 2 mg Q30M PRN IV 10/15/25 04:30 Sodium Chloride 1,000 ml @ 125 mls/hr Q8H IV 10/15/25 15:15 10/17/25 13:56 125 MLS/HR Enoxaparin Sodium 40 mg DAILY SC 10/16/25 10:00 10/17/25 09:16 40 MG Cefepime HCl 50 ml @ 12.5 mls/hr Q8HR IV 10/15/25 22:00 10/17/25 14:16 12.5 MLS/HR Fentanyl Citrate 250 ml @ 2.5 mls/hr Q24H IV 10/15/25 15:15 10/16/25 19:55 15 MLS/HR Enteral Nutritional Formula 1,000 ml 30ML/HR GT 10/15/25 16:15 10/15/25 20:26 1,000 ML Sodium Chloride 10 ml QSHIFT@10,22 IV 10/16/25 22:00 10/17/25 09:16 10 ML Magnesium Sulfate/ Dextrose 100 ml @ 100 mls/hr Q1HR IV 10/17/25 15:00 10/17/25 16:59 Cancel Examination Patient lying in bed, under sedoanalgesia due to mechanical ventilation General: RASS -3, afebrile, mucosae are moist Cardiovascular: Normal S1 and S2. No murmurs, gallops or rubs Respiratory: Mechanically assisted ventilation, equal bilateral airway entree. Clear lung sounds on auscultation Abdomen: Soft, nontender, no organomegaly, normal bowel sounds MSK/skin: Mobilization of limbs cannot be evaluated. Skin is dry and warm Neurological: Orientation cannot be assessed. No apparent motor no sensitive deficits. Pupils are isocoric and reactive laboratory and microbiology Laboratory Tests 10/17/25 03:29 Test 10/17/25 03:29 Range/Units Serum Glucose 107 H 74-106 mg/dL Microbiology Date/Time Source Procedure Growth Status 10/16/25 17:30 Urine - Costello [place] Urine Culture - Preliminary No growth Resulted 10/15/25 12:35 Nose MRSA Screen - Final Complete 10/14/25 22:28 Blood Blood Culture - Preliminary NO GROWTH AFTER 48 HOURS OF INCUBATION. Resulted 10/14/25 21:54 Sputum Gram Stain - Final Resulted 10/14/25 21:54 Respiratory Culture - Preliminary Haemophilus parahemolyticus Resulted Problem List/Assessment/Plan Problem List/Assessment/Plan Neurology : # metabolic encephalopathy due to possible drug overdose, seizure activity - head CT shows no acute intracranial abnormality - patient was on Suboxone for opiate abuse - U tox shows amphetamine positive - continue mechanical ventilation for airway protection - CPAP trial tomorrow morning Cardiovascular : # NSTEMI due to likely demand ischemia - trops were 56/ - we will follow up to rule out ACS Respiratory : #Gram-negative bacterial pneumonia # possible aspiration pneumonia - CXR shows: Perihilar interstitial opacities suggesting edema or atypical infection. - sputum culture shows: Haemophilus Parahaemolyticus - continue cefepime 2 g extended infusion q.8 hours Gastroenterology # transaminitis - AST was 202> 1027> 499, total bilirubin 1.2> 0.9 > 0.8 # hepatitis-C - patient is hepatitis-C positive - we will re-evaluate either patient got treatment or not Genitourinary : # possible UTI - UA shows leukocyte esterase positive, urine WBC 29 - continue cefepime - urine culture ordered # Rhabdomyolysis - CK was 8391 > 64054> 01709 - patient is on NS 125ml per hour - rhabdomyolysis improving - CK level tomorrow morning Infectious Disease : #Gram-negative bacterial pneumonia # possible aspiration pneumonia - sputum culture shows: Haemophilus Parahaemolyticus - blood culture and urine culture - CXR shows: Perihilar interstitial opacities suggesting edema or atypical infection. - continue cefepime 2 g extended infusion q.8 hours Nutrition : - continue Jevity 30 mL/hour Prophylaxis for PUD and DVT: Protonix IV, Lovenox IV Drips - Fentanyl - Precedex Invasive access : Costello catheter : 10/14/25 Endotracheal tube : 10/14/25 Peripheral lines: 10/14/25 PICC line: 10/17/25 Possible CPAP trial tomorrow morning Critical Care time spent 62 minutes including patient care, chart review , excluding procedure. Case discussed with Dr. Cote. Plan discussed with: Other (RN) My Orders My Orders Orders - ELLIS HER RESIDENT Procedure Category Date Status Time Chest Xray 1 View XY 10/17/25 Resulted 04:00 Abg W/ Co-Ox RT 10/17/25 Logged 04:00 Potassium Chl PHA 10/17/25 In Process 20meq/100ml 15:00 Complete Blood Count LAB 10/18/25 Verified 04:00 Comprehensive LAB 10/18/25 Verified Metabolic Panel 04:00 Chest Xray 1 View XY 10/18/25 Verified 04:00 Abg W/ Co-Ox RT 10/18/25 Verified 04:00 Dietary Evaluation Review Comments: When Intubated: 1. Consider TF Vital A.F. @50ml/hr (90g protein, 1440 kcal and 973ml free water. this will meet pt's protein needs @95%, energy needs @91% When extubated 2. 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 Drug Rehab counseling Expected Outcomes/Goals: Free from drug addictions Date of Service: Oct 17, 2025 Billing Provider: MARCO ANTONIO COTE MD Common Visit Codes: [id number] CARE 30-74 MIN ELLIS HER RESIDENT Oct 17, 2025 15:56 MARCO ANTONIO COTE MD Oct 18, 2025 10:47
[2025-10-18] VITALS (73 sets, daily range): BP systolic 119–171; BP diastolic 76–107; PULSE 58–83; RESP 10–24; TEMP 97.3–99.7; O2SAT 97–100
[2025-10-18 04:03] LABS: Hematocrit 35.9 % (41.0-53.0); Hemoglobin 12.2 g/dL (13.5-17.5); Mean Corpuscular Hemoglobin 30.6 pg (28.0-32.0); Mean Corpuscular Volume 90.2 fL (80.0-100.0); Nucleated Red Blood Cells % 0.0 %
[2025-10-18 04:21] LABS: Alkaline Phosphatase 58 U/L (46-116); BUN/Creatinine Ratio 16.3 (10.0-20.0); Bilirubin, Total 0.8 mg/dL (0.2-1.0); Glucose 92 mg/dL (74-106); Sodium 144 mmol/L (136-145)
[2025-10-18 04:38] LABS: Alanine Aminotransferase 195 U/L (7-40); Albumin 3.1 g/dL (3.2-4.8); Blood Urea Nitrogen 8 mg/dL (9-23); Calcium 8.0 mg/dL (8.7-10.4); Chloride 110 mmol/L (98-107); Potassium 3.4 mmol/L (3.5-5.1); Total Protein 5.5 g/dL (5.7-8.2)
[2025-10-18 04:47] LABS: Anion Gap 13 (5-15); Carbon Dioxide 21 mmol/L (20-31)
[2025-10-18] MEDS: POTASSIUM CHL 20MEQ/100ML 100 ML IV ONE (05:15)
[2025-10-18 07:51] LABS: Base Excess -5.0 mmol/L (-2.0-3.0)
--- NOTE | 2025-10-18 07:59 | DVH ---
CHEST RADIOGRAPH Indication: intubated Technique: Single frontal view of the chest was obtained Comparison: XY CHEST XRAY 1 VIEW on DOS: 10/17/25. FINDINGS: Lines and Tubes: The endotracheal tube terminates 5.0 cm above the marcia. There is a right PICC with its tip terminating in the superior vena cava. The enteric tube courses below the left hemidiaphragm and the tip extends outside the field of view. Lungs: No focal consolidation. Pleura: No effusion. No pneumothorax. Cardiomediastinal contours: Unremarkable Bones: No acute osseous abnormality. IMPRESSION: 1. Endotracheal tube terminates 5 cm above the marcia. 2. No acute cardiopulmonary disease.
[2025-10-18 11:39] LABS: Base Excess -4.6 mmol/L (-2.0-3.0)
--- NOTE | 2025-10-18 15:45 | DVHPNRES ---
Progress Note Date Seen: Oct 18, 2025 Resident Creating Document: ELLIS HER RESIDENT Medical Necessity Reason Pt with a Central, PICC or Fol: Yes Subjective Review of Systems 50-year-old male presents for evaluation of altered mental status. Patient is currently sedated and intubated. Per ED records EMS was called for possible seizure activity. Patient was found unresponsive. On arrival to the emergency department patient was unresponsive therefore was emergently intubated for airway protection. [facility] and [facility] was [facility] un[facility] in the [facility], this is unclear if patient had seizure or some other drug overdose, at present patient's temperature was 106 F. patient also treating at [facility] and [facility], patient is in Probation . No family contact . 10/16/25: In and examined at bedside, patient is intubated and sedated, [place] [address], on IV bolus was given and patient is on IV normal saline 125 per hour, we will check CK and we will do CPAP trial tomorrow. 10/17/25: Patient seen and examined at bedside. The morning patient was on sedation and patient woke up got agitated, patient was placed back on sedation fentanyl 25 and Precedex 0.4. We will try CPAP. 10/18/25: Patient seen and examined at bedside, successfully extubated today. Objective vital signs Vital Sign Date Time Temp Pulse Resp B/P (MAP) Pulse Ox O2 Delivery O2 Flow Rate FiO2 10/18/25 15:00 99.7 67 13 166/95 (118) 100 99.7 10/18/25 11:48 30 10/18/25 08:00 Mechanical Ventilator+ Total Intake and Output 10/17/25 10/17/25 10/18/25 15:00 23:00 07:00 Intake Total 27.43 ml 807.11 ml 1313.70 ml Output Total 350 ml 625 ml Balance 27.43 ml 457.11 ml 688.70 ml medications Current Medications Medications Dose Ordered Sig/Radha Route Start Time Stop Time Status Last Admin Dose Admin Midazolam HCl 100 ml @ 1 mls/hr Q24H IV 10/14/25 22:15 10/17/25 22:02 10 MLS/HR Albuterol 2.5 mg Q6HPRN PRN NEB 10/15/25 04:30 Pantoprazole Sodium 40 mg DAILY IV 10/15/25 10:00 10/18/25 10:20 40 MG Ondansetron HCl 4 mg Q4HP PRN IV 10/15/25 04:30 Acetaminophen 650 mg Q6HP PRN PO 10/15/25 04:30 Nitroglycerin 0.4 mg Q5MINP PRN SL 10/15/25 04:30 Morphine Sulfate 2 mg Q30M PRN IV 10/15/25 04:30 Sodium Chloride 1,000 ml @ 125 mls/hr Q8H IV 10/15/25 15:15 10/18/25 07:55 125 MLS/HR Enoxaparin Sodium 40 mg DAILY SC 10/16/25 10:00 10/18/25 10:23 40 MG Cefepime HCl 50 ml @ 12.5 mls/hr Q8HR IV 10/15/25 22:00 10/18/25 05:50 12.5 MLS/HR Fentanyl Citrate 250 ml @ 2.5 mls/hr Q24H IV 10/15/25 15:15 10/18/25 00:48 12.5 MLS/HR Enteral Nutritional Formula 1,000 ml 30ML/HR GT 10/15/25 16:15 10/15/25 20:26 1,000 ML Sodium Chloride 10 ml QSHIFT@10,22 IV 10/16/25 22:00 10/18/25 10:23 10 ML Magnesium Sulfate/ Dextrose 100 ml @ 100 mls/hr Q1HR IV 10/17/25 15:00 10/17/25 16:59 Cancel Hydralazine HCl 10 mg Q6HP PRN IV 10/17/25 17:15 Examination Patient lying in bed, under sedoanalgesia due to mechanical ventilation General: RASS -1, afebrile, mucosae are moist Cardiovascular: Normal S1 and S2. No murmurs, gallops or rubs Respiratory: Extubated today, on supplemental oxygen Abdomen: Soft, nontender, no organomegaly, normal bowel sounds MSK/skin: Mobilization of limbs cannot be evaluated. Skin is dry and warm Neurological: Orientation cannot be assessed. No apparent motor no sensitive deficits. Pupils are isocoric and reactive laboratory and microbiology Laboratory Tests 10/18/25 03:05 Test 10/18/25 03:05 Range/Units Serum Glucose 92 74-106 mg/dL Microbiology Date/Time Source Procedure Growth Status 10/16/25 17:30 Urine - [place] Urine Culture - Final Complete 10/15/25 12:35 Nose MRSA Screen - Final Complete 10/14/25 22:28 Blood Blood Culture - Preliminary NO GROWTH AFTER 72 HOURS OF INCUBATION. Resulted 10/14/25 21:54 Sputum Gram Stain - Final Resulted 10/14/25 21:54 Sputum Respiratory Culture - Preliminary Resulted Problem List/Assessment/Plan Problem List/Assessment/Plan Neurology : # metabolic encephalopathy due to possible drug overdose, seizure activity - head CT shows no acute intracranial abnormality - patient was on Suboxone for opiate abuse - U tox shows amphetamine positive - continue mechanical ventilation for airway protection - extubated today, patient is following commands Cardiovascular : # NSTEMI due to likely demand ischemia - trops were 56/74 - we will follow up to rule out ACS Respiratory : #Gram-negative bacterial pneumonia # possible aspiration pneumonia - CXR shows: Perihilar interstitial opacities suggesting edema or atypical infection. - sputum culture shows: Haemophilus Parahaemolyticus - continue cefepime 2 g extended infusion q.8 hours Gastroenterology # transaminitis - AST was 202> 1027> 499, total bilirubin 1.2> 0.9 > 0.8 # hepatitis-C - patient is hepatitis-C positive - we will re-evaluate either patient got treatment or not Genitourinary : # possible UTI - UA shows leukocyte esterase positive, urine WBC 29 - continue cefepime - urine culture ordered # Rhabdomyolysis - CK was 8391 > 35247> 86314 > 5300 - patient is on NS 125ml per hour - rhabdomyolysis improving - CK level tomorrow morning Infectious Disease : #Gram-negative bacterial pneumonia # possible aspiration pneumonia - sputum culture shows: Haemophilus Parahaemolyticus - blood culture and urine culture - CXR shows: Perihilar interstitial opacities suggesting edema or atypical infection. - continue cefepime 2 g extended infusion q.8 hours Nutrition : - continue Jevity 30 mL/hour Prophylaxis for PUD and DVT: Protonix IV, Lovenox IV Drips - Fentanyl - Precedex Invasive access : Costello catheter : 10/14/25 Endotracheal tube : 10/14/25 Peripheral lines: 10/14/25 PICC line: 10/17/25 Patient was extubated today, now on supplemental oxygen Critical Care time spent 107 minutes including CPAP trial, extubation, patient care, chart review , excluding procedure. Case discussed with Dr. Cote. Plan discussed with: Other (RN) My Orders My Orders Orders - ELLIS HER RESIDENT Procedure Category Date Status Time Chest Xray 1 View XY 10/18/25 Resulted 04:00 Abg W/ Co-Ox RT 10/18/25 Logged 04:00 Hydralazine Injection PHA 10/17/25 In Process (Apresoline Inject 17:15 Complete Blood Count LAB 10/19/25 Verified 04:00 Comprehensive LAB 10/19/25 Verified Metabolic Panel 04:00 Dietary Evaluation Review Comments: When Intubated: 1. Consider TF Vital A.F. @50ml/hr (90g protein, 1440 kcal and 973ml free water. this will meet pt's protein needs @95%, energy needs @91% When extubated 2. Advance to Regular Diet texture as tolerated when medically feasible and passing POWERHOUSE OILER, 3. Drug Rehab counseling Expected Outcomes/Goals: Free from drug addictions Date of Service: Oct 18, 2025 Billing Provider: MARCO ANTONIO COTE MD Common Visit Codes: 07240-[id number] CARE 30-74 MIN, [id number] CARE-EACH +30MIN ELLIS HER Oct 18, 2025 15:45 MARCO ANTONIO COTE MD Oct 20, 2025 12:36
[2025-10-19] VITALS (29 sets, daily range): BP systolic 116–161; BP diastolic 63–101; PULSE 71–98; RESP 11–20; TEMP 98.2–98.7; O2SAT 97–100
[2025-10-19 03:20] LABS: Hematocrit 36.5 % (41.0-53.0); Hemoglobin 12.4 g/dL (13.5-17.5); Mean Corpuscular Hemoglobin 30.6 pg (28.0-32.0); Mean Corpuscular Volume 90.2 fL (80.0-100.0); Nucleated Red Blood Cells % 0.1 %
[2025-10-19 03:25] LABS: Albumin 3.3 g/dL (3.2-4.8); Alkaline Phosphatase 61 U/L (46-116); Anion Gap 14 (5-15); BUN/Creatinine Ratio 14.9 (10.0-20.0); Carbon Dioxide 22 mmol/L (20-31); Sodium 143 mmol/L (136-145); Total Protein 5.7 g/dL (5.7-8.2)
[2025-10-19 03:26] LABS: Bilirubin, Total 0.8 mg/dL (0.2-1.0)
[2025-10-19 03:35] LABS: Alanine Aminotransferase 158 U/L (7-40); Blood Urea Nitrogen 7 mg/dL (9-23); Calcium 8.5 mg/dL (8.7-10.4); Chloride 107 mmol/L (98-107); Glucose 73 mg/dL (74-106); Potassium 3.4 mmol/L (3.5-5.1)
[2025-10-19] MEDS: POTASSIUM CHL 20MEQ/100ML 100 ML IV ONE ×2 (04:08→16:43)
--- NOTE | 2025-10-19 15:10 | DVHPNRES ---
Progress Note Date Seen: Oct 19, 2025 Resident Creating Document: ELLIS HER RESIDENT Medical Necessity Reason Pt with a Central, PICC or Fol: Yes Subjective Review of Systems 50-year-old male presents for evaluation of altered mental status. Patient is currently sedated and intubated. Per ED records EMS was called for possible seizure activity. Patient was found unresponsive. On arrival to the emergency department patient was unresponsive therefore was emergently intubated for airway protection. [facility] and [facility], this is unclear if patient had seizure or some other drug overdose, at present patient's temperature was 106 F. patient also treating at [facility] and [facility], patient is in Probation . No family contact . 10/16/25: In and examined at bedside, patient is intubated and sedated, [place] [address], on IV bolus was given and patient is on IV normal saline 125 per hour, we will check CK and we will do CPAP trial tomorrow. 10/17/25: Patient seen and examined at bedside. The morning patient was on sedation and patient woke up got agitated, patient was placed back on sedation fentanyl 25 and Precedex 0.4. We will try CPAP. 10/18/25: Patient seen and examined at bedside, successfully extubated today. 10/19/25: Seen and examined at bedside, patient is little confused, patient is on 2 L oxygen supplementation, patient is off pressors and off sedation. Downgrade patient to WES. Objective vital signs Vital Sign Date Time Temp Pulse Resp B/P (MAP) Pulse Ox O2 Delivery O2 Flow Rate FiO2 10/19/25 13:00 79 14 146/85 (105) 100 10/19/25 12:00 98.2 98.2 10/19/25 10:00 Nasal Cannula* 2 28 Total Intake and Output 10/18/25 10/18/25 10/19/25 15:00 23:00 07:00 Intake Total 1071.49 ml 1050 ml 1156.5 ml Output Total 750 ml 1100 ml Balance 1071.49 ml 300 ml 56.5 ml medications Current Medications Medications Dose Ordered Sig/Radha Route Start Time Stop Time Status Last Admin Dose Admin Midazolam HCl 100 ml @ 1 mls/hr Q24H IV 10/14/25 22:15 10/17/25 22:02 10 MLS/HR Albuterol 2.5 mg Q6HPRN PRN NEB 10/15/25 04:30 Pantoprazole Sodium 40 mg DAILY IV 10/15/25 10:00 10/19/25 09:33 40 MG Ondansetron HCl 4 mg Q4HP PRN IV 10/15/25 04:30 Acetaminophen 650 mg Q6HP PRN PO 10/15/25 04:30 Nitroglycerin 0.4 mg Q5MINP PRN SL 10/15/25 04:30 Morphine Sulfate 2 mg Q30M PRN IV 10/15/25 04:30 Sodium Chloride 1,000 ml @ 125 mls/hr Q8H IV 10/15/25 15:15 10/19/25 11:28 125 MLS/HR Enoxaparin Sodium 40 mg DAILY SC 10/16/25 10:00 10/19/25 09:33 40 MG Cefepime HCl 50 ml @ 12.5 mls/hr Q8HR IV 10/15/25 22:00 10/19/25 14:28 12.5 MLS/HR Fentanyl Citrate 250 ml @ 2.5 mls/hr Q24H IV 10/15/25 15:15 10/18/25 00:48 12.5 MLS/HR Enteral Nutritional Formula 1,000 ml 30ML/HR GT 10/15/25 16:15 10/15/25 20:26 1,000 ML Sodium Chloride 10 ml QSHIFT@10,22 IV 10/16/25 22:00 10/19/25 09:33 10 ML Magnesium Sulfate/ Dextrose 100 ml @ 100 mls/hr Q1HR IV 10/17/25 15:00 10/17/25 16:59 Cancel Hydralazine HCl 10 mg Q6HP PRN IV 10/17/25 17:15 Examination GENERAL: Not in acute distress. HEENT: EOMI, Moist mucous membranes. No scleral icterus. No cervical lymphadenopathy. LUNGS: Clear to auscultation bilaterally. No accessory muscle use. On 2 L supplemental oxygen with nasal cannula. CARDIOVASCULAR: Regular rate and rhythm. No murmur. No JVD. ABDOMEN: Soft, nontender and nondistended. No palpable masses. EXTREMITIES: No edema. Nontender. SKIN: No rashes or lesions. Warm. NEUROLOGIC: Al patient is little confused, laboratory and microbiology Laboratory Tests 11/21/25 02:34 Test 10/19/25 02:34 Range/Units Serum Glucose 73 L 74-106 mg/dL Microbiology Date/Time Source Procedure Growth Status 10/16/25 17:30 Urine - [place] Urine Culture - Final Complete 10/15/25 12:35 Nose MRSA Screen - Final Complete 10/14/25 22:28 Blood Blood Culture - Preliminary NO GROWTH AFTER 72 HOURS OF INCUBATION. Resulted 10/14/25 21:54 Sputum Gram Stain - Final Complete 10/14/25 21:54 Sputum Respiratory Culture - Final Complete Problem List/Assessment/Plan Problem List/Assessment/Plan Neurology : # metabolic encephalopathy due to possible drug overdose, seizure activity - improved - head CT shows no acute intracranial abnormality - patient was on Suboxone for opiate abuse - U tox shows amphetamine positive - continue mechanical ventilation for airway protection - patient is going to [facility] Cardiovascular : # NSTEMI due to likely demand ischemia - trops were 56/74 - we will follow up to rule out ACS Respiratory : #Gram-negative bacterial pneumonia # possible aspiration pneumonia - CXR shows: Perihilar interstitial opacities suggesting edema or atypical infection. - sputum culture shows: Haemophilus Parahaemolyticus - continue cefepime 2 g extended infusion q.8 hours Gastroenterology # transaminitis - AST was 202> 1027> 499, total bilirubin 1.2> 0.9 > 0.8 # hepatitis-C - patient is hepatitis-C positive - we will re-evaluate either patient got treatment or not Genitourinary : # possible UTI - UA shows leukocyte esterase positive, urine WBC 29 - continue cefepime - urine culture ordered # Rhabdomyolysis - CK was 8391 > 70511> 65674 > 5300 - patient is on NS 125ml per hour - rhabdomyolysis improving - CK level tomorrow morning Infectious Disease : #Gram-negative bacterial pneumonia # possible aspiration pneumonia - sputum culture shows: Haemophilus Parahaemolyticus - blood culture and urine culture - CXR shows: Perihilar interstitial opacities suggesting edema or atypical infection. - continue cefepime 2 g extended infusion q.8 hours Nutrition : - continue Jevity 30 mL/hour Prophylaxis for PUD and DVT: Protonix IV, Lovenox IV Drips - Fentanyl - Precedex Invasive access : Costello catheter : 10/14/25 Endotracheal tube : 10/14/25 Peripheral lines: 10/14/25 PICC line: 10/17/25 Patient is downgraded to [facility] Critical Care time spent 47 minutes including patient care, chart review , excluding procedure. Case discussed with Dr. Alvarez Plan discussed with: Patient, Other (RN) My Orders My Orders Orders - ELLIS HER Procedure Category Date Status Time Transfer Orders XFER 10/19/25 Transmitted 13:13 * Swallow Request ST 10/19/25 Transmitted 13:31 Dietary Evaluation Review Comments: When Intubated: 1. Consider TF Vital A.F. @50ml/hr (90g protein, 1440 kcal and 973ml free water. this will meet pt's protein needs @95%, energy needs @91% When extubated 2. Advance to Regular Diet texture as tolerated when medically feasible and passing STORE SALES CONSULTANT, 3. Drug Rehab counseling Expected Outcomes/Goals: Free from drug addictions ELLIS HER RESIDENT Oct 19, 2025 15:10
[2025-10-19] MEDS: hydrALAZINE HCL 20 MG/ML VL IV PRN (19:43)
[2025-10-20] VITALS (27 sets, daily range): BP systolic 137–176; BP diastolic 76–100; PULSE 81–126; RESP 11–30; TEMP 98.1–101.2; O2SAT 94–100
[2025-10-20 04:12] LABS: Hematocrit 38.1 % (41.0-53.0); Hemoglobin 13.1 g/dL (13.5-17.5); Mean Corpuscular Hemoglobin 30.8 pg (28.0-32.0); Mean Corpuscular Volume 89.4 fL (80.0-100.0); Nucleated Red Blood Cells % 0.1 %
[2025-10-20 04:28] LABS: Alkaline Phosphatase 63 U/L (46-116); Anion Gap 16 (5-15); Carbon Dioxide 21 mmol/L (20-31); Chloride 106 mmol/L (98-107); Potassium 3.6 mmol/L (3.5-5.1); Sodium 143 mmol/L (136-145)
[2025-10-20 04:29] LABS: Alanine Aminotransferase 130 U/L (7-40); Albumin 3.1 g/dL (3.2-4.8); BUN/Creatinine Ratio 8.5 (10.0-20.0); Blood Urea Nitrogen < 5 mg/dL (9-23); Calcium 8.3 mg/dL (8.7-10.4); Glucose 71 mg/dL (74-106); Total Protein 5.4 g/dL (5.7-8.2)
[2025-10-20 04:30] LABS: Bilirubin, Total 0.6 mg/dL (0.2-1.0)
[2025-10-20 05:04] LABS: Creatine Kinase IFCC 1996 U/L (46-171)
--- NOTE | 2025-10-20 08:07 | DVHPNRES ---
Progress Note Date Seen: Oct 20, 2025 Resident Creating Document: COLLEEN VEGA RESIDENT Has the PT tested + for MRSA If YES, has PT been informed?: No Medical Necessity Reason Pt with a Central, PICC or Fol: Yes Subjective Review of Systems 50-year-old male presents for evaluation of altered mental status. Patient is currently sedated and intubated. Per ED records EMS was called for possible seizure activity. Patient was found unresponsive. On arrival to the emergency department patient was unresponsive therefore was emergently intubated for airway protection. Patient was residing at [facility] and he was found unresponsive in the care home, this is unclear if patient had seizure or some other drug overdose, at present patient's temperature was 106 F. patient also treating at [facility] and [facility], patient is in Probation . No family contact . 10/16/25: In and examined at bedside, patient is intubated and sedated, [place] [address], on IV bolus was given and patient is on IV normal saline 125 per hour, we will check CK and we will do CPAP trial tomorrow. 10/17/25: Patient seen and examined at bedside. The morning patient was on sedation and patient woke up got agitated, patient was placed back on sedation fentanyl 25 and Precedex 0.4. We will try CPAP. 10/18/25: Patient seen and examined at bedside, successfully extubated today. 10/19/25: Seen and examined at bedside, patient is little confused, patient is on 2 L oxygen supplementation, patient is off pressors and off sedation. Downgrade patient to WES. 10/20/25 The patient is post-extubation day 2 (extubated 10/18/25) and evaluated at bedside today.He is awake, alert, anxious, and shivering, reporting subjective chills but denies chest pain, abdominal pain, or nausea. Able to drink water (3 cups) and take small PO intake (1 jelly) without aspiration symptoms. No shortness of breath; on 2 L nasal cannula with SpO2 fluctuating 83003%.Reports generalized weakness. No focal neurological deficits reported.Bowel movement last noted on 10/15. Review of Systems: RESPIRATORY:Abnormal Objective vital signs Vital Sign Date Time Temp Pulse Resp B/P (MAP) Pulse Ox O2 Delivery O2 Flow Rate FiO2 10/20/25 07:00 84 11 138/88 (105) 99 10/20/25 06:00 Nasal Cannula* 2 28 10/20/25 04:00 98.1 98.1 Total Intake and Output 10/19/25 10/19/25 10/20/25 15:00 23:00 07:00 Intake Total 1000 ml 1073.5 ml 1095.5 ml Output Total 2200 ml 2250 ml Balance 1000 ml -1126.5 ml -1154.5 ml medications Current Medications Medications Dose Ordered Sig/Radha Route Start Time Stop Time Status Last Admin Dose Admin Midazolam HCl 100 ml @ 1 mls/hr Q24H IV 10/14/25 22:15 10/17/25 22:02 10 MLS/HR Albuterol 2.5 mg Q6HPRN PRN NEB 10/15/25 04:30 Pantoprazole Sodium 40 mg DAILY IV 10/15/25 10:00 10/19/25 09:33 40 MG Ondansetron HCl 4 mg Q4HP PRN IV 10/15/25 04:30 Acetaminophen 650 mg Q6HP PRN PO 10/15/25 04:30 Nitroglycerin 0.4 mg Q5MINP PRN SL 10/15/25 04:30 Morphine Sulfate 2 mg Q30M PRN IV 10/15/25 04:30 Sodium Chloride 1,000 ml @ 125 mls/hr Q8H IV 10/15/25 15:15 10/20/25 04:03 125 MLS/HR Enoxaparin Sodium 40 mg DAILY SC 10/16/25 10:00 10/19/25 09:33 40 MG Cefepime HCl 50 ml @ 12.5 mls/hr Q8HR IV 10/15/25 22:00 10/20/25 05:33 12.5 MLS/HR Fentanyl Citrate 250 ml @ 2.5 mls/hr Q24H IV 10/15/25 15:15 10/18/25 00:48 12.5 MLS/HR Enteral Nutritional Formula 1,000 ml 30ML/HR GT 10/15/25 16:15 10/15/25 20:26 1,000 ML Sodium Chloride 10 ml QSHIFT@10,22 IV 10/16/25 22:00 10/19/25 21:38 10 ML Magnesium Sulfate/ Dextrose 100 ml @ 100 mls/hr Q1HR IV 10/17/25 15:00 10/17/25 16:59 Cancel Hydralazine HCl 10 mg Q6HP PRN IV 10/17/25 17:15 10/19/25 19:43 10 MG Examination GENERAL: Not in acute distress. Awake, anxious, shivering. HEENT: EOMI, Moist mucous membranes. No scleral icterus. No cervical lymphadenopathy. LUNGS: Clear to auscultation bilaterally. No accessory muscle use. On 2 L supplemental oxygen with nasal cannula. CARDIOVASCULAR: Regular rate and rhythm. No murmur. No JVD.Sinus tachycardia ABDOMEN: Soft, nontender and nondistended. No palpable masses. EXTREMITIES: No edema. Nontender. SKIN: No rashes or lesions. Warm. NEUROLOGIC:Alert, oriented 3, no focal deficits. Cranial nerves intact. Tremulous. laboratory and microbiology Laboratory Tests 10/20/25 03:40 Test 10/20/25 03:40 Range/Units Serum Glucose 71 L 74-106 mg/dL Microbiology Date/Time Source Procedure Growth Status 10/16/25 17:30 Urine - [place] Urine Culture - Final Complete 10/15/25 12:35 Nose MRSA Screen - Final Complete 10/14/25 22:28 Blood Blood Culture - Final NO GROWTH AFTER 5 DAYS OF INCUBATION. Complete 10/14/25 21:54 Sputum Gram Stain - Final Complete 10/14/25 21:54 Sputum Respiratory Culture - Final Complete Problem List/Assessment/Plan Problem List/Assessment/Plan Problem List/Assessment/Plan Neurology : # metabolic encephalopathy due to possible drug overdose, seizure activity - improved - head CT shows no acute intracranial abnormality - patient was on Suboxone for opiate abuse - U tox shows amphetamine positive - continue mechanical ventilation for airway protection Post-extubation agitation/anxiety * Monitor for agitation/withdrawal. * Lorazepam 2 mg IV q8h PRN for severe anxiety/shivering. * Consider CIWA protocol if withdrawal suspected. * Reassess tremors. - patient is going to telemetry Cardiovascular : # NSTEMI due to likely demand ischemia - trops were - we will follow up to rule out ACS * Clonidine 0.1 mg PO BID for BP and autonomic control * Avoid beta-blockers until CK drops <1000 * Telemetry monitoring Respiratory : #Gram-negative bacterial pneumonia # possible aspiration pneumonia - CXR shows: Perihilar interstitial opacities suggesting edema or atypical infection. - sputum culture shows: Haemophilus Parahaemolyticus - continue cefepime 2 g extended infusion q.8 hours * Now on 2 L NC with SpO2 90302% Gastroenterology # transaminitis - AST was 202> 1027> 499, total bilirubin 1.2> 0.9 > 0.8 # hepatitis-C - patient is hepatitis-C positive - we will re-evaluate either patient got treatment or not Genitourinary : # possible UTI - UA shows leukocyte esterase positive, urine WBC 29 - continue cefepime - urine culture ordered # Rhabdomyolysis - CK was 8391 > 77753> 05284 > 5300> 1995 - patient is on NS 125ml per hour - rhabdomyolysis improving - CK level tomorrow morning Infectious Disease : #Gram-negative bacterial pneumonia # possible aspiration pneumonia - sputum culture shows: Haemophilus Parahaemolyticus - blood culture and urine culture - CXR shows: Perihilar interstitial opacities suggesting edema or atypical infection. - continue cefepime 2 g extended infusion q.8 hours Nutrition : * Clear liquids today advance as tolerated * Monitor LFTs daily Prophylaxis for PUD and DVT: Protonix IV, Lovenox IV Drips - Fentanyl - Precedex PT / OT * PT/OT for mobility Invasive access : Costello catheter : 10/14/25 Endotracheal tube : 10/14/25 Peripheral lines: 10/14/25 PICC line: 10/17/25 Patient is downgraded to W[facility] Critical Care time spent 47 minutes including patient care, chart review , excluding procedure. Case discussed with Dr. Alvarez Plan discussed with: Patient, Other (RN) Dietary Evaluation Review Comments: When Intubated: 1. Consider TF Vital A.F. @50ml/hr (90g protein, 1440 kcal and 973ml free water. this will meet pt's protein needs @95%, energy needs @91% When extubated 2. Advance to Regular Diet texture as tolerated when medically feasible and passing EDGE STITCHER, 3. Drug Rehab counseling Expected Outcomes/Goals: Free from drug addictions COLLEEN VEGA RESIDENT Oct 20, 2025 08:07
--- NOTE | 2025-10-20 09:30 | DVH ---
CHEST RADIOGRAPH Indication: r/o pna Technique: Single frontal view of the chest was obtained Comparison: XY CHEST XRAY 1 VIEW on DOS: 10/18/25, XY CHEST XRAY 1 VIEW on DOS: 10/17/25, XY CHEST XRAY 1 VIEW on DOS: 10/16/25 FINDINGS: Lines and Tubes: PICC line from right arm is in place with the tip terminating in the superior vena cava. Enteric tube is not definitively identified. If clinically present and positioning is of concern recommend repeat study. Lungs: No focal consolidation. Pleura: No effusion. No pneumothorax. Cardiomediastinal contours: Unremarkable Bones: No acute osseous abnormality. IMPRESSION: 1. PICC line from right arm in place unchanged. 2. Endotracheal tube and enteric tube not visualized on this study. 3. No airspace disease or pleural effusions.
[2025-10-20] MEDS: LORazepam 2MG/ML-1ML VIAL IV ONE (11:04)
[2025-10-20 11:25] LABS: Urine Protein, UAD TRACE (Negative)
[2025-10-20] MEDS: LORazepam 2MG/ML-1ML VIAL IV PRN (17:41)
[2025-10-20] MEDS: ACETAMINOPHEN 325 MG TAB PO PRN (22:28)
[2025-10-21] VITALS (23 sets, daily range): BP systolic 130–162; BP diastolic 75–107; PULSE 69–115; RESP 11–27; TEMP 98–100.6; O2SAT 94–98
[2025-10-21 04:36] LABS: Hematocrit 36.5 % (41.0-53.0); Hemoglobin 12.4 g/dL (13.5-17.5); Mean Corpuscular Hemoglobin 30.3 pg (28.0-32.0); Mean Corpuscular Volume 89.2 fL (80.0-100.0); Nucleated Red Blood Cells % 0.0 %
[2025-10-21 04:50] LABS: Albumin 3.2 g/dL (3.2-4.8); Alkaline Phosphatase 58 U/L (46-116); Anion Gap 12 (5-15); Bilirubin, Total 0.6 mg/dL (0.2-1.0); Carbon Dioxide 23 mmol/L (20-31); Glucose 101 mg/dL (74-106); Sodium 143 mmol/L (136-145)
[2025-10-21 05:22] LABS: Alanine Aminotransferase 108 U/L (7-40); BUN/Creatinine Ratio 9.1 (10.0-20.0); Blood Urea Nitrogen < 5 mg/dL (9-23); Calcium 8.6 mg/dL (8.7-10.4); Chloride 108 mmol/L (98-107); Creatine Kinase IFCC 2501 U/L (46-171); Potassium 3.5 mmol/L (3.5-5.1); Total Protein 5.5 g/dL (5.7-8.2)
--- NOTE | 2025-10-21 13:34 | DVHPNRES ---
Progress Note Date Seen: Oct 21, 2025 Resident Creating Document: ELLIS HER RESIDENT Has the PT tested + for MRSA If YES, has PT been informed?: No Medical Necessity Reason Pt with a Central, PICC or Fol: No Subjective Review of Systems 50-year-old male presents for evaluation of altered mental status. Patient is currently sedated and intubated. Per ED records EMS was called for possible seizure activity. Patient was found unresponsive. On arrival to the emergency department patient was unresponsive therefore was emergently intubated for airway protection. Patient was residing at emergency half-way and he was found unresponsive in the half-way, this is unclear if patient had seizure or some other drug overdose, at present patient's temperature was 106 F. patient also treating at [facility] and [facility], patient is in Probation . No family contact . 10/16/25: In and examined at bedside, patient is intubated and sedated, [place] [address], on IV bolus was given and patient is on IV normal saline 125 per hour, we will check CK and we will do CPAP trial tomorrow. 10/17/25: Patient seen and examined at bedside. The morning patient was on sedation and patient woke up got agitated, patient was placed back on sedation fentanyl 25 and Precedex 0.4. We will try CPAP. 10/18/25: Patient seen and examined at bedside, successfully extubated today. 10/19/25: Seen and examined at bedside, patient is little confused, patient is on 2 L oxygen supplementation, patient is off pressors and off sedation. Downgrade patient to WES. 10/20/25 The patient is post-extubation day 2 (extubated 10/18/25) and evaluated at bedside today.He is awake, alert, anxious, and shivering, reporting subjective chills but denies chest pain, abdominal pain, or nausea. Able to drink water (3 cups) and take small PO intake (1 jelly) without aspiration symptoms. No shortness of breath; on 2 L nasal cannula with SpO2 fluctuating 06461%.Reports generalized weakness. No focal neurological deficits reported.Bowel movement last noted on 10/15. 10/21/25: Patient seen and examined at bedside, no new complaint, patient is still mild confused. Objective vital signs Vital Sign Date Time Temp Pulse Resp B/P (MAP) Pulse Ox O2 Delivery O2 Flow Rate FiO2 10/21/25 12:12 98 Room Air 0.0 10/21/25 12:12 21 10/21/25 12:00 99.4 77 13 130/77 (94) 99.4 Total Intake and Output 10/20/25 10/20/25 10/21/25 15:00 23:00 07:00 Intake Total 1000 ml 1315.0 ml 1090.0 ml Output Total 1100 ml 1100 ml Balance 1000 ml 215.0 ml -10.0 ml medications Current Medications Medications Dose Ordered Sig/Radha Route Start Time Stop Time Status Last Admin Dose Admin Albuterol 2.5 mg Q6HPRN PRN NEB 10/15/25 04:30 Pantoprazole Sodium 40 mg DAILY IV 10/15/25 10:00 10/21/25 09:46 40 MG Ondansetron HCl 4 mg Q4HP PRN IV 10/15/25 04:30 Acetaminophen 650 mg Q6HP PRN PO 10/15/25 04:30 10/20/25 22:28 650 MG Nitroglycerin 0.4 mg Q5MINP PRN SL 10/15/25 04:30 Morphine Sulfate 2 mg Q30M PRN IV 10/15/25 04:30 Sodium Chloride 1,000 ml @ 125 mls/hr Q8H IV 10/15/25 15:15 10/21/25 05:13 125 MLS/HR Enoxaparin Sodium 40 mg DAILY SC 10/16/25 10:00 10/19/25 09:33 40 MG Cefepime HCl 50 ml @ 12.5 mls/hr Q8HR IV 10/15/25 22:00 10/21/25 05:05 12.5 MLS/HR Sodium Chloride 10 ml QSHIFT@10,22 IV 10/16/25 22:00 10/21/25 09:46 10 ML Magnesium Sulfate/ Dextrose 100 ml @ 100 mls/hr Q1HR IV 10/17/25 15:00 10/17/25 16:59 Cancel Hydralazine HCl 10 mg Q6HP PRN IV 10/17/25 17:15 10/20/25 15:39 10 MG Clonidine HCl 0.1 mg BID PO 10/20/25 16:30 10/22/25 16:30 10/21/25 09:46 0.1 MG Lorazepam 1 mg Q8HP PRN IV 10/20/25 16:30 10/21/25 02:21 1 MG Examination GENERAL: Not in acute distress. Awake, anxious, shivering. HEENT: EOMI, Moist mucous membranes. No scleral icterus. No cervical lymphadenopathy. LUNGS: Clear to auscultation bilaterally. No accessory muscle use. On 2 L supplemental oxygen with nasal cannula. CARDIOVASCULAR: Regular rate and rhythm. No murmur. No JVD.Sinus tachycardia ABDOMEN: Soft, nontender and nondistended. No palpable masses. EXTREMITIES: No edema. Nontender. SKIN: No rashes or lesions. Warm. NEUROLOGIC:Alert, oriented 3, no focal deficits. Cranial nerves intact. laboratory and microbiology Laboratory Tests 10/21/25 04:00 Test 10/21/25 04:00 Range/Units Serum Glucose 101 74-106 mg/dL Microbiology Date/Time Source Procedure Growth Status 10/20/25 10:26 Blood Blood Culture - Preliminary NO GROWTH AFTER 24 HOURS OF INCUBATION. Resulted 10/16/25 17:30 Urine - [place] Urine Culture - Final Complete 10/15/25 12:35 Nose MRSA Screen - Final Complete 10/14/25 21:54 Sputum Gram Stain - Final Complete 10/14/25 21:54 Sputum Respiratory Culture - Final Complete Problem List/Assessment/Plan Problem List/Assessment/Plan Neurology : # metabolic encephalopathy due to possible drug overdose, seizure activity - improved - head CT shows no acute intracranial abnormality - patient was on Suboxone for opiate abuse - U tox shows amphetamine positive - continue mechanical ventilation for airway protection - patient is going to WES Cardiovascular : # NSTEMI due to likely demand ischemia - trops were 56/74 - we will follow up to rule out ACS Respiratory : #Gram-negative bacterial pneumonia # possible aspiration pneumonia - CXR shows: Perihilar interstitial opacities suggesting edema or atypical infection. - sputum culture shows: Haemophilus Parahaemolyticus - continue cefepime 2 g extended infusion q.8 hours Gastroenterology # transaminitis - AST was 202> 1027> 499, total bilirubin 1.2> 0.9 > 0.8 # hepatitis-C - patient is hepatitis-C positive - we will re-evaluate either patient got treatment or not Genitourinary : # possible UTI - UA shows leukocyte esterase positive, urine WBC 29 - continue cefepime - urine culture ordered # Rhabdomyolysis - CK was 8391 > 98150> 92635 > 5300 - patient is on NS 125ml per hour - rhabdomyolysis improving - CK level tomorrow morning Infectious Disease : #Gram-negative bacterial pneumonia # possible aspiration pneumonia - sputum culture shows: Haemophilus Parahaemolyticus - blood culture and urine culture - CXR shows: Perihilar interstitial opacities suggesting edema or atypical infection. - continue cefepime 2 g extended infusion q.8 hours Nutrition : - continue Jevity 30 mL/hour Prophylaxis for PUD and DVT: Protonix IV, Lovenox IV Drips - Fentanyl - Precedex Invasive access : [place] catheter : 10/14/25 Endotracheal tube : 10/14/25 Peripheral lines: 10/14/25 PICC line: 10/17/25 Patient is downgraded to WES Critical Care time spent 47 minutes including patient care, chart review , excluding procedure. Case discussed with Dr. Alvarez Plan discussed with: Patient, Other (RN) Dietary Evaluation Review Comments: When Intubated: 1. Consider TF Vital A.F. @50ml/hr (90g protein, 1440 kcal and 973ml free water. this will meet pt's protein needs @95%, energy needs @91% When extubated 2. Advance to Regular Diet texture as tolerated when medically feasible and passing ELECTRICAL HIGH TENSION TESTER, 3. Drug Rehab counseling Expected Outcomes/Goals: Free from drug addictions ELLIS HER RESIDENT Oct 21, 2025 13:34
[2025-10-21] MEDS: LORazepam 2MG/ML-1ML VIAL ONE (17:09)
[2025-10-22] VITALS (9 sets, daily range): BP systolic 134–163; BP diastolic 85–98; PULSE 76–91; RESP 16–18; TEMP 98–98.8; O2SAT 95–98
[2025-10-22] MEDS: LORazepam 2MG/ML-1ML VIAL ONE ×2 (04:45)
--- NOTE | 2025-10-22 10:13 | DVHPNRES ---
Progress Note Date Seen: Oct 22, 2025 Resident Creating Document: ELLIS HER RESIDENT Has the PT tested + for MRSA If YES, has PT been informed?: No Medical Necessity Reason Pt with a Central, PICC or Fol: No Subjective Review of Systems 50-year-old male presents for evaluation of altered mental status. Patient is currently sedated and intubated. Per ED records EMS was called for possible seizure activity. Patient was found unresponsive. On arrival to the emergency department patient was unresponsive therefore was emergently intubated for airway protection. [facility] and [facility], this is unclear if patient had seizure or some other drug overdose, at present patient's temperature was 106 F. patient also treating at [facility] and [facility], patient is in Probation . No family contact . 10/16/25: In and examined at bedside, patient is intubated and sedated, [place] [address], on IV bolus was given and patient is on IV normal saline 125 per hour, we will check CK and we will do CPAP trial tomorrow. 10/17/25: Patient seen and examined at bedside. The morning patient was on sedation and patient woke up got agitated, patient was placed back on sedation fentanyl 25 and Precedex 0.4. We will try CPAP. 10/18/25: Patient seen and examined at bedside, successfully extubated today. 10/19/25: Seen and examined at bedside, patient is little confused, patient is on 2 L oxygen supplementation, patient is off pressors and off sedation. Downgrade patient to WES. 10/20/25 The patient is post-extubation day 2 (extubated 10/18/25) and evaluated at bedside today.He is awake, alert, anxious, and shivering, reporting subjective chills but denies chest pain, abdominal pain, or nausea. Able to drink water (3 cups) and take small PO intake (1 jelly) without aspiration symptoms. No shortness of breath; on 2 L nasal cannula with SpO2 fluctuating 99474%.Reports generalized weakness. No focal neurological deficits reported.Bowel movement last noted on 10/15. 10/21/25: Patient seen and examined at bedside, no new complaint, patient is still mild confused. 10/22/25: Patient seen and examined at bedside, patient is lying on bed, patient is working with PT. Objective vital signs Vital Sign Date Time Temp Pulse Resp B/P (MAP) Pulse Ox O2 Delivery O2 Flow Rate FiO2 10/22/25 09:46 124/79 10/22/25 08:47 98.8 77 16 97 98.8 10/21/25 20:00 Room Air* 0 21 Total Intake and Output 10/21/25 10/21/25 10/22/25 15:00 23:00 07:00 Intake Total 1000 ml 780 ml 1385 ml Output Total 1250 ml 1000 ml Balance 1000 ml -470 ml 385 ml medications Current Medications Medications Dose Ordered Sig/Radha Route Start Time Stop Time Status Last Admin Dose Admin Albuterol 2.5 mg Q6HPRN PRN NEB 10/15/25 04:30 Pantoprazole Sodium 40 mg DAILY IV 10/15/25 10:00 10/22/25 09:53 40 MG Ondansetron HCl 4 mg Q4HP PRN IV 10/15/25 04:30 Acetaminophen 650 mg Q6HP PRN PO 10/15/25 04:30 10/20/25 22:28 650 MG Nitroglycerin 0.4 mg Q5MINP PRN SL 10/15/25 04:30 Morphine Sulfate 2 mg Q30M PRN IV 10/15/25 04:30 Sodium Chloride 1,000 ml @ 125 mls/hr Q8H IV 10/15/25 15:15 10/21/25 13:59 125 MLS/HR Enoxaparin Sodium 40 mg DAILY SC 10/16/25 10:00 10/19/25 09:33 40 MG Cefepime HCl 50 ml @ 12.5 mls/hr Q8HR IV 10/15/25 22:00 10/22/25 06:29 12.5 MLS/HR Sodium Chloride 10 ml QSHIFT@10,22 IV 10/16/25 22:00 10/22/25 09:53 10 ML Magnesium Sulfate/ Dextrose 100 ml @ 100 mls/hr Q1HR IV 10/17/25 15:00 10/17/25 16:59 Cancel Hydralazine HCl 10 mg Q6HP PRN IV 10/17/25 17:15 10/21/25 18:06 10 MG Clonidine HCl 0.1 mg BID PO 10/20/25 16:30 10/22/25 16:30 10/22/25 09:46 0.1 MG Lorazepam 1 mg Q8HP PRN IV 10/20/25 16:30 10/21/25 02:21 1 MG Examination GENERAL: Not in acute distress. Awake, anxious, shivering. HEENT: EOMI, Moist mucous membranes. No scleral icterus. No cervical lymphadenopathy. LUNGS: Clear to auscultation bilaterally. No accessory muscle use. On 2 L supplemental oxygen with nasal cannula. CARDIOVASCULAR: Regular rate and rhythm. No murmur. No JVD.Sinus tachycardia ABDOMEN: Soft, nontender and nondistended. No palpable masses. EXTREMITIES: No edema. Nontender. SKIN: No rashes or lesions. Warm. NEUROLOGIC:Alert, oriented 3, no focal deficits. Cranial nerves intact. laboratory and microbiology Laboratory Tests 10/21/25 04:00 Test 10/21/25 04:00 Range/Units Serum Glucose 101 74-106 mg/dL Microbiology Date/Time Source Procedure Growth Status 10/20/25 10:26 Blood Blood Culture - Preliminary NO GROWTH AFTER 24 HOURS OF INCUBATION. Resulted 10/16/25 17:30 Urine - [place] Urine Culture - Final Complete 10/15/25 12:35 Nose MRSA Screen - Final Complete 10/14/25 21:54 Sputum Gram Stain - Final Complete 10/14/25 21:54 Sputum Respiratory Culture - Final Complete Problem List/Assessment/Plan Problem List/Assessment/Plan Neurology : # metabolic encephalopathy due to possible drug overdose, seizure activity - improved - head CT shows no acute intracranial abnormality - patient was on Suboxone for opiate abuse - U tox shows amphetamine positive - continue mechanical ventilation for airway protection Cardiovascular : # NSTEMI due to likely demand ischemia - trops were 56/74 - we will follow up to rule out ACS Respiratory : #Gram-negative bacterial pneumonia # possible aspiration pneumonia - CXR shows: Perihilar interstitial opacities suggesting edema or atypical infection. - sputum culture shows: Haemophilus Parahaemolyticus - continue cefepime 2 g extended infusion q.8 hours Gastroenterology # transaminitis - AST was 202> 1027> 499, total bilirubin 1.2> 0.9 > 0.8 # hepatitis-C - patient is hepatitis-C positive - we will re-evaluate either patient got treatment or not Genitourinary : # possible UTI - UA shows leukocyte esterase positive, urine WBC 29 - continue cefepime - urine culture ordered # Rhabdomyolysis - CK was 8391 > 21714> 36727 > 5300 - patient is on NS 125ml per hour - rhabdomyolysis improving - CK level tomorrow morning Infectious Disease : #Gram-negative bacterial pneumonia # possible aspiration pneumonia - sputum culture shows: Haemophilus Parahaemolyticus - blood culture and urine culture - CXR shows: Perihilar interstitial opacities suggesting edema or atypical infection. - improved Case discussed with Dr. Cote advance care planning- full code- time spent 19 mins Plan discussed with: Patient Dietary Evaluation Review Comments: When Intubated: 1. Consider TF Vital A.F. @50ml/hr (90g protein, 1440 kcal and 973ml free water. this will meet pt's protein needs @95%, energy needs @91% When extubated 2. Advance to Regular Diet texture as tolerated when medically feasible and passing SLEEP TECHNICIAN, 3. Drug Rehab counseling Expected Outcomes/Goals: Free from drug addictions Date of Service: Oct 22, 2025 Billing Provider: MARCO ANTONIO COTE MD Common Visit Codes: [id number]-[id number] INP/OBS CARE(HIGH) Secondary Visit Codes: [id number] CARE PLAN 30 MINUTES ELLIS HER RESIDENT Oct 22, 2025 10:13 MARCO ANTONIO COTE MD Oct 23, 2025 14:37
[2025-10-22] MEDS: SODIUM CHLORIDE 0.9% 1,000 ML IV SCH (10:15)
--- NOTE | 2025-10-22 10:53 | MEDREC ---
[facility] ASP Intervention Section I [facility] Intervention: Deescalate AB based on CS (PLEASE CONSIDER DE-ESCALATION / DISCONTINUATION OF CEFEPIME -WBC WITHIN NORMAL RANGE - SPUTUM CULTURE WITH NORMAL OROPHARYNGEAL BALJIT - URINE CULTURE WITH NO GROWTH - BLOOD CULTURE WITH NO GROWTH) LISA LI PHARMACIST Oct 22, 2025 10:53
[2025-10-23 01:00] VITALS: BP 160/94; PULSE 81; RESP 16; TEMP 98.3; O2SAT 95
[2025-10-23 04:51] VITALS: BP 170/98; PULSE 76; RESP 17; TEMP 98; O2SAT 96
[2025-10-23] MEDS: PANTOPRAZOLE 40 MG TAB PO SCH (06:03)
[2025-10-23 08:00] VITALS: RESP 18
--- NOTE | 2025-10-23 08:21 | DVHDSRES ---
Discharge Summary Date of Admission Resident Creating Document: ELLIS HER RESIDENT Oct 15, 2025 at 04:26 Date of Discharge: Oct 23, 2025 Admitting Diagnosis Metabolic encephalopathy, seizure-like activity due to drug overdose Labs/Diagnostic Data: Laboratory Results Test 10/21/25 04:00 10/20/25 08:50 10/20/25 05:07 10/18/25 11:26 White Blood Count 7.3 10^3/uL (4.4-10.8) Red Blood Count 4.09 10^6/uL (4.5-5.90) Hemoglobin 12.4 g/dL (13.5-17.5) Hematocrit 36.5 % (41.0-53.0) Mean Corpuscular Volume 89.2 fL (80.0-100.0) Mean Corpuscular Hemoglobin 30.3 pg (28.0-32.0) Mean Corpuscular Hemoglobin Concent 34.0 g/dL (32.0-36.0) Red Cell Distribution Width 14.0 % (11.8-14.3) Platelet Count 280 10^3/uL (140-450) Mean Platelet Volume 6.7 fL (6.9-10.8) Neutrophils (%) (Auto) 77.1 % (37.0-80.0) Lymphocytes (%) (Auto) 9.7 % (10.0-50.0) Monocytes (%) (Auto) 12.2 % (0.0-12.0) Eosinophils (%) (Auto) 0.8 % (0.0-7.0) Basophils (%) (Auto) 0.2 % (0.0-2.0) Neutrophils # (Auto) 5.6 10 ^3/uL (1.6-8.6) Lymphocytes # (Auto) 0.7 10 ^3/uL (0.4-5.4) Monocytes # (Auto) 0.9 10 ^3/uL (0-1.3) Eosinophils # (Auto) 0.1 10 ^3/uL (0-0.8) Basophils # (Auto) 0 10 ^3/uL (0-0.2) Nucleated Red Blood Cells 0.0 % Sodium Level 143 mmol/L (136-145) Potassium Level 3.5 mmol/L (3.5-5.1) Chloride Level 108 mmol/L (98-107) Carbon Dioxide Level 23 mmol/L (20-31) Anion Gap 12 (5-15) Blood Urea Nitrogen < 5 mg/dL (9-23) Creatinine 0.55 mg/dL (0.700-1.30) Glomerular Filtration Rate Calc 119 mL/min (>90) BUN/Creatinine Ratio 9.1 (10.0-20.0) Serum Glucose 101 mg/dL (74-106) Calcium Level 8.6 mg/dL (8.7-10.4) Total Bilirubin 0.6 mg/dL (0.2-1.0) Aspartate Amino Transferase (AST) 103 U/L (13-40) Alanine Aminotransferase (ALT) 108 U/L (7-40) Alkaline Phosphatase 58 U/L (46-116) Creatine Kinase 2501 U/L (46-171) Total Protein 5.5 g/dL (5.7-8.2) Albumin 3.2 g/dL (3.2-4.8) Urine Color Light-yellow (Yellow) Urine Clarity Clear (Clear) Urine pH 6.0 (5.0-9.0) Urine Specific [place] 1.015 (1.001-1.035) Urine Protein Trace (Negative) Urine Ketones 4+ (Negative) Urine Blood 1+ /uL (Negative) Urine Nitrite Negative (Negative) Urine Bilirubin Negative (Negative) Urine Urobilinogen Normal mg/dL (Negative) Urine Leukocyte Esterase Negative /uL (Negative) Urine RBC 3 /hpf (0 - 3) Urine Microscopic WBC 2 /HPF (0-3) Urine Squamous Epithelial Cells None seen /hpf (<5) Urine Bacteria None seen /hpf (None Seen) Urine Mucus Few (None Seen) Urine Glucose Normal mg/dL (Normal) POC Glucose 119 mg/dl (70-106) Blood Gas Specimen Type Arterial Blood Gas Sample Site Left radial Blood Gas Patient Temperature 37.0 Arterial Blood Date Drawn Arterial Blood pH 7.356 (7.350-7.450) Arterial Blood Partial Pressure CO2 37.2 mmHg (35.0-48.0) Arterial Blood Partial Pressure O2 130.3 mmHg (83.0-108.0) Arterial Blood HCO3 20.4 mmol/L (21.0-28.0) Arterial Blood Oxygen Saturation 98.4 % (94.0-98.0) Arterial Blood Base Excess -4.6 mmol/L (-2.0-3.0) Arterial Blood Oxyhemoglobin 97.8 % (94.0-98.0) Arterial Blood Carboxyhemoglobin 0.3 % (0.5-1.5) Arterial Blood Methemoglobin 0.3 % (0.0-1.5) Jae Test Modified Blood Gas Total Hemoglobin 13.60 g/dL (13.5-17.5) Blood Gas Modality Vent - cpap FiO2 % 30.0 Blood Gas Spontaneous Tidal Volume 491 Blood Gas Pressure Support 8 Blood Gas PEEP or CPAP 5.0 Test 10/18/25 07:45 10/16/25 03:40 10/15/25 12:35 10/15/25 04:56 Blood Gas Set Respiration Rate 16.0 Blood Gas Spontaneous Rate 16 Blood Gas Tidal Volume 500.0 Hemoglobin A1c 5.3 % A1C (<5.7) Hepatitis A IgM Antibody Negative Hepatitis B Surface Antigen Negative (Negative) Hepatitis B Core IgM Antibody Negative (Negative) Hepatitis C Antibody Positive (Negative) Influenza Type A Antigen Negative (Negative) Influenza Type B Antigen Negative (Negative) SARS-CoV-2 Antigen (Rapid) Negative (NEGATIVE) Direct Bilirubin 0.4 mg/dL (<0.3) Thyroid Stimulating Hormone (TSH) 0.76 uIU/mL (0.55-4.78) Test 10/15/25 00:58 10/14/25 23:44 10/14/25 22:35 10/14/25 21:50 Troponin I High Sensitivity 74 ng/L (</=54) Lactic Acid Level 1.4 mmol/L (0.4-2.0) Blood Gas Critical Value Read Back Yes Blood Gas Notified Whom quoc Haynes Blood Gas Notified Time [id number] Blood Gas Notified By Face Man elvia tran Urine Hyaline Casts Few /lpf (0 - 2) Urine Yeast (Budding) Occasional /hpf (None Urine Opiates Screen Neg (NEGATIVE) Urine Fentanyl Screen Neg (NEGATIVE) Urine Barbiturates Screen Neg (NEGATIVE) Urine Phencyclidine Screen Neg (NEGATIVE) Urine Amphetamines Screen Pos (NEGATIVE) Urine Benzodiazepines Screen Neg (NEGATIVE) Urine Cocaine Screen Neg (NEGATIVE) Urine Cannabinoids Screen Neg (NEGATIVE) Test 10/14/25 21:45 Prothrombin Time 10.9 sec (9.3-11.8) Prothrombin Time INR 1.03 (0.9-1.15) Magnesium Level 1.8 mg/dL (1.6-2.6) B-Type Natriuretic Peptide 35.93 pg/mL (0-100) Lipase 27 U/L (12-53) Plasma/Serum Blood Alcohol < 3.0 mg/dL (<10) Other Laboratory Tests 10/21/25 04:00 Brief Hx & Hospital Course: 50-year-old male presents for evaluation of altered mental status. Patient is currently sedated and intubated. Per ED records EMS was called for possible seizure activity. Patient was found unresponsive. On arrival to the emergency department patient was unresponsive therefore was emergently intubated for airway protection. Patient was residing at emergency [facility] and he was found unresponsive in the [facility], this is unclear if patient had seizure or some other drug overdose, at present patient's temperature was 106 F. patient also treating at [facility], patient is in Probation . No family contact . patient is intubated and [place], [place] [address], on IV bolus was given and patient is on IV normal saline 125 per hour, next day patient was off sedation and patient woke up got agitated, patient was placed back on sedation fentanyl 25 and Precedex 0.4. Patient was successfully extubated on 10/18/25. next day patient is little confused, patient is on 2 L oxygen supplementation, patient is off pressors and off sedation. Downgraded patient to WES. Patient is diagnosed with pneumonia with sputum culture shows: Haemophilus Parahaemolyticus and treated with cefepime, patient also positive hepatitis-C and stated he did not get treatment for hepatitis-C. Advised patient follow up with primary care or dizzy clinic for follow up. Two the patient is hemodynamically stable and has no signs symptoms of any infection, patient is alert and oriented, patient is going to be discharged to [facility]dc, his previous living arrangement, time spent in discharge planning was 39 mins Condition at Discharge: Fair Final Diagnosis/Problems List # metabolic encephalopathy due to possible drug overdose, seizure activity. # NSTEMI due to likely demand ischemia #Gram-negative bacterial pneumonia # possible aspiration pneumonia # transaminitis # hepatitis-C # possible UTI # Rhabdomyolysis Discharge Disposition: [facility] Discharge Will this Physician continue t: No Discharge Instruct/Medications Diet: Regular Activity: No Restrictions, As Tolerated Follow Up/Referral: Follow-up with D/C Clinic Medications: Resume home medication No Active Prescriptions or Reported Meds Discharge Statement: "Patient was advised to return to the ER or call 911 if any headaches, dizziness, shortness of breath, chest pain, abdominal pain, bleeding, fevers, or worsening of medical condition. Patient was counseled about treatment plan, medications, possible side effects, patientverbalized understanding. All questions were answered to the best of my ability. This discharge took greater then 30 minutes in planning, reviewing documentation, counseling the patient, and discussing with other team members." ASSESSMENT ASSESSMENT Assessment # metabolic encephalopathy due to possible drug overdose, seizure activity. # NSTEMI due to likely demand ischemia #Gram-negative bacterial pneumonia # possible aspiration pneumonia # transaminitis # hepatitis-C # possible UTI # Rhabdomyolysis Date of Service: Oct 23, 2025 Billing Provider: MARCO ANTONIO COTE MD Common Visit Codes: [id number] DISCH DAY >30min ELLIS HER RESIDENT Oct 23, 2025 08:21 MARCO ANTONIO COTE MD Oct 25, 2025 11:20
[2025-10-23 09:00] VITALS: BP 166/86; PULSE 87; RESP 18; TEMP 98.5; O2SAT 96
[2025-10-23 10:42] VITALS: BP 151/84
== END 2025-10-23 11:20 | disposition home or self-care (01) | DRG 812 ==
LOC: ER 21:30 → EDBD 21:30 → OVERFLOW 10-15 04:26 → ICU WEST 10-15 05:30 → TELE-EAST 10-21 17:38
PROVIDERS: ADMIT Internal Medicine; ATTEND Internal Medicine
PROC: 0BH17EZ Insertion of Endotracheal Airway into Trachea, Via Natural or Artificial Opening (ICD-10-PCS; principal; 2025-10-14)
PROC: 5A1945Z Respiratory Ventilation, 24-96 Consecutive Hours (ICD-10-PCS; 2025-10-14)
PROC: 02HV33Z Insertion of Infusion Device into Superior Vena Cava, Percutaneous Approach (ICD-10-PCS; 2025-10-16)
PROC: B548ZZA Ultrasonography of Superior Vena Cava, Guidance (ICD-10-PCS; 2025-10-16)
DX: T50.991A Poisoning by other drugs, medicaments and biological substances, accidental (unintentional), initial encounter (principal); J69.0 Pneumonitis due to inhalation of food and vomit; J96.01 Acute respiratory failure with hypoxia; G93.41 Metabolic encephalopathy; J15.69 Pneumonia due to other Gram-negative bacteria; N39.0 Urinary tract infection, site not specified; N17.9 Acute kidney failure, unspecified; F15.10 Other stimulant abuse, uncomplicated; R56.9 Unspecified convulsions; B19.20 Unspecified viral hepatitis C without hepatic coma; Z20.822 Contact with and (suspected) exposure to COVID-19; M62.82 Rhabdomyolysis; I21.A1 Myocardial infarction type 2; I47.10 Supraventricular tachycardia, unspecified; R74.01 Elevation of levels of liver transaminase levels; Y92.89 Other specified places as the place of occurrence of the external cause
CPT/HCPCS: 31500; 36415; 36569; 36600; 70450; 71045; 76937; 80048; 80053; 80074; 80076; 80307; 80320; 81001; 82550; 82805; 82962; 83036; 83605; 83690; 83735; 83880; 84443; 84484; 85025; 85610; 87040; 87070; 87077; 87081; 87086; 87205; 87426; 87804; 92610; 93005; 94002; 94003; 94640; 96365; 96375; 97116; 97163; 97530; 99291; G0378; J0692; J2470; J2543; J3480